=== PATIENT | male | born 1960 | race African-American/Black ===

== ENCOUNTER 2021-08-24 23:37 | Emergency (ER) | payer OTHER, SELFPAY ==
[2021-08-24 23:51] VITALS: BP 102/61; PULSE 81; RESP 18; TEMP 36.7; O2SAT 97; BMI 23.8
--- NOTE | 2021-08-24 23:52 | ED.ALLEREA ---
HPI - Allergic Reaction General Chief complaint: Allergic Reaction Stated complaint: stung by bee on face, sob, swollen Time Seen by Provider: 08/24/21 23:49 Source: patient Mode of arrival: ambulatory Limitations: no limitations History of Present Illness HPI narrative: Patient comes to the emergency room complaining of an allergic reaction to a bee sting. 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 However he noticed that they were obese coming out. Patient is unsure how many times he got stung. Patient denies any chest pain or shortness of breath, no difficulty swallowing. Patient states that the right side of his face has gradually been getting more swollen since 18:00. Patient states he took 2 tablets of Benadryl approximately 5 hours ago, no hives. Related Data Previous Rx's Medication Instructions Recorded epinephrine 0.3 mg/0.3 mL 0.3 mg (0.3 mL) IM Q4H PRN 08/24/21 injection, auto-injector (EpiPen) hypersensitivity reaction #2 ea Allergies Allergy/AdvReac Type Severity Reaction Status Date / Time bee pollen [bee stings] Allergy Intermediate Facial Verified 08/25/21 00:52 Swelling oxycodone [From OxyContin] Allergy Mild ITCHING/VOM Unverified 11/07/19 16:24 ITING acetaminophen [Vicodin] Allergy Unknown Hives Verified 08/25/21 00:52 hydrocodone [HYDROCODONE] AdvReac Severe STOMACH Unverified 11/07/19 16:24 CRAMPING Review of Systems Review of Systems: Constitutional : No Weight loss, No Fever, No Chills, No Night Sweats, No Fatigue, No Malaise ENT/Mouth : No Hearing loss, No Ear Pain, No Nasal Congestion, No Sinus Pain, No Hoarseness, No sore throat, No Rhinorrhea, No Swallowing Difficulty Eyes: No Eye Pain, No Swelling, No Redness, No Foreign Body, No Discharge, No Vision Changes Cardiovascular : No Chest Pain, No SOB, No Dyspnea on Exertion, No Orthopnea, No Edema, No Palpitations Respiratory : No Cough, No Sputum, No Wheezing, No Smoke Exposure, No Dyspnea Gastrointestinal : No Nausea, No Vomiting, No Diarrhea, No Constipation, No abdominal Pain, No Hematochezia, No Melena Genitourinary : no irregular bleeding, No Dysuria, No Urinary Frequency, No Hematuria, No Urinary Incontinence, No Urgency, No Flank Pain, No Urinary Flow Changes, No Hesitancy Musculoskeletal : No joint pain, No Myalgias, No Joint Swelling Skin : Complaining of facial swelling under the right eye Neuro : No Weakness, No Numbness, No Paresthesias, No Loss of Consciousness, No Dizziness, No Headache Psych : No Anxiety/Panic, No Depression, No SI/HI/AH/VH, No Social Issues, Heme/Lymph: No Bruising, No Bleeding,No Lymphadenopathy Endocrine : No Polyuria, No Polydipsia, No Temperature Intolerance [facility] Social History Social History Alcohol intake: current Alcohol intake frequency: holidays/special occasions only Patient Tobacco Use Status: Never used Tobacco Use of substances other than those prescribed or required for medical reasons: No Physical Exam ED Vital Signs: Vital Signs - 24 hr 08/24/21 23:51 08/24/21 23:54 08/25/21 00:00 Temperature 98.1 F 98.1 F Pulse Rate 81 81 81 Respiratory Rate 18 18 18 Blood Pressure 102/61 102/61 102/61 Pulse Oximetry 97 97 97 Oxygen Delivery Method Room Air Room Air Room Air 08/25/21 00:08 Temperature Pulse Rate 83 Respiratory Rate 15 Blood Pressure 111/65 Pulse Oximetry 97 Oxygen Delivery Method BMI result Body Mass Index 23.8 Const Other: Appearance: Alert. Oriented X3. No acute distress. Eyes: Pupils equal, round and reactive to light. ENT: Pharynx normal. No angioedema Neck: Normal inspection. Neck supple. No lymph nodes noted. No crepitus CVS: Normal heart rate and rhythm. Pulses normal. Normal S1 and S2 Respiratory: No respiratory distress. Breath sounds normal. No Wheezing. No rales Abdomen: Soft and nontender. No rigidity. No distention. Skin: Skin warm and dry. Patient has swelling to the right side of the face, from the eyebrow to below the right eye. Extremities: No lower extremity edema. No Lacerations. No Rash Neuro: Oriented X 3. No motor deficit. No sensory deficit. Moving all extremities. No slurred speech. CN 2 through 12 grossly intact Psych: calm, cooperative, normal affect Course Course Course Narrative: Patient has no shortness of breath, no wheezing, no hives, no injury edema. Patient does have moderate facial swelling under the right eye. Patient is being given IV Solu-Medrol, Pepcid and Benadryl. At this time, there is no need for epinephrine. 00:50, patient is somnolent, there is no wheezing, no angioedema, the swelling in the face subsided. EpiPen has been sent to the patient's pharmacy, instructed to have it with him at all times Discharge Plan Discharge Clinical Impression: Allergic reaction to bee sting Patient Disposition: Home, Self-Care Instructions: Insect Bite or Sting (ED), General Allergic Reaction (ED) Additional Instructions: Please follow-up with your primary care physician tomorrow. If you have any worsening or new symptoms, please return to the emergency room or call 911 Prescriptions: New epinephrine [EpiPen] 0.3 mg/0.3 mL auto-injector 0.3 mg IM Q4H PRN (Reason: hypersensitivity reaction) Qty: 2 0RF
[2021-08-24 23:54] VITALS: BP 102/61; PULSE 81; RESP 18; TEMP 36.7; O2SAT 97
[2021-08-25] VITALS: BP 102/61; PULSE 81; RESP 18; O2SAT 97
[2021-08-25] MEDS: Famotidine/PF 20 MG/2 ML VIAL IVPUSH
[2021-08-25] MEDS: diphenhydrAMINE HCL 50 MG/ML VIAL IVPUSH
[2021-08-25] MEDS: methylPREDNISolone Sod Succ 125 MG/2 ML VIAL IVPUSH
[2021-08-25 00:08] VITALS: BP 111/65; PULSE 83; RESP 15; O2SAT 97
== END 2021-08-25 01:06 | disposition home or self-care (01) ==
LOC: HO.ED 08-25 01:05
PROVIDERS: Emergency Provider Emergency Medicine; PCP Family Medicine
DX: R22.0 Localized swelling, mass and lump, head (principal); T63.441A Toxic effect of venom of bees, accidental (unintentional), initial encounter; Y92.89 Other specified places as the place of occurrence of the external cause
CPT/HCPCS: 96374; 96375; 99284; J1200; J2930

== ENCOUNTER 2022-01-11 14:06 | Emergency (ER) | payer OTHER, SELFPAY ==
--- NOTE | ~2022-01-11 | XR_ITS ---
EXAMINATION: XR KNEE, RIGHT CLINICAL INFORMATION: Pain and swelling COMPARISON: None TECHNIQUE: Four views of the right knee. FINDINGS: There is a moderate suprapatellar joint effusion and a moderate-sized prepatellar soft tissue swelling. There is decrease in patellofemoral joint space. Mild chondrocalcinosis of medial and lateral meniscus. No visible acute fracture, loose bodies, lytic or sclerotic process seen. Suspect mild periarticular spurring lateral compartment. XR/XR knee RT 3V IMPRESSION: 1. Moderate suprapatellar joint effusion and prepatellar soft tissue swelling. 2. Chondrocalcinosis medial and lateral meniscus. 3. No visible acute fracture, dislocation or subluxation seen. 4. Mild degenerative changes lateral compartment.
[2022-01-11 14:37] VITALS: BP 109/58; PULSE 98; RESP 18; TEMP 36.7; O2SAT 99; BMI 22.8
--- NOTE | 2022-01-11 14:42 | ED.FALL ---
HPI - Fall General Chief Complaint: Extremity Injury, Lower <Minesh Rhoades MD - Last Filed: 01/11/22 14:45> Stated Complaint: R knee/leg pain <Minesh Rhoades MD - Last Filed: 01/11/22 14:45> Time Seen by Provider: 01/11/22 14:54 <Minesh Rhoades MD - Last Filed: 01/11/22 14:45> Source: patient <Azalia Salter NP - Last Filed: 01/11/22 16:30> Mode of arrival: wheelchair <Azalia Salter NP - Last Filed: 01/11/22 16:30> Limitations: no limitations <Azalia Salter NP - Last Filed: 01/11/22 16:30> History of Present Illness HPI Narrative: 61-year-old male with a history of previous right knee surgery here with right knee pain and swelling after fall 3 days ago. Patient reports he had a mechanical fall landing directly on the right knee. Since then increasing pain and swelling with difficulty with weight-bearing. No redness, warmth, fevers, chills. <Azalia Salter NP - Last Filed: 01/11/22 16:30> Related Data Home Medications: Previous Rx's Medication Instructions Recorded epinephrine 0.3 mg/0.3 mL 0.3 mg (0.3 mL) IM Q4H PRN 08/24/21 injection, auto-injector (EpiPen) hypersensitivity reaction #2 ea oxycodone 5 mg tablet 5 mg PO Q6H PRN pain #10 tabs 01/11/22 <Minesh Rhoades MD - Last Filed: 01/11/22 14:45> Allergies/Adverse Reactions: Allergies Allergy/AdvReac Type Severity Reaction Status Date / Time bee pollen [bee stings] Allergy Intermediate Facial Verified 08/25/21 00:52 Swelling oxycodone [From OxyContin] Allergy Mild ITCHING/VOM Unverified 11/07/19 16:24 ITING acetaminophen [Vicodin] Allergy Unknown Hives Verified 08/25/21 00:52 hydrocodone [HYDROCODONE] AdvReac Severe STOMACH Unverified 11/07/19 16:24 CRAMPING <Minesh Rhoades MD - Last Filed: 01/11/22 14:45> Review of Systems Review of Systems: Yes all other systems are reviewed and are negative <Azalia Salter NP - Last Filed: 01/11/22 16:30> Constitutional: Constitutional: Reports no additional constitutional complaints, Denies body ache(s), Denies chills, Denies fever(s), Denies headache(s) and Denies weakness <Azalia Salter NP - Last Filed: 01/11/22 16:30> Eyes: Eyes: Reports no additional eye complaints and Denies change in vision <Azalia Salter NP - Last Filed: 01/11/22 16:30> ENT: Reports system reviewed and no additional complaints, except as documented, Denies dizziness, Denies headache(s), Denies nasal congestion, Denies nasal discharge and Denies neck pain <Azalia Salter NP - Last Filed: 01/11/22 16:30> Cardiovascular: Cardiovascular: Reports no additional cardiovascular complaints, Denies chest pain, Denies leg edema and Denies dyspnea <Azalia Salter NP - Last Filed: 01/11/22 16:30> Respiratory: Respiratory: Reports no additional respiratory complaints, Denies cough and Denies dyspnea <Azalia Salter NP - Last Filed: 01/11/22 16:30> Gastrointestinal: Gastrointestinal: Reports no additional gastrointestinal complaints, Denies abdominal pain, Denies diarrhea, Denies nausea and Denies vomiting <Azalia Salter NP - Last Filed: 01/11/22 16:30> Genitourinary: Genitourinary: Denies urinary incontinence <Azalia Salter NP - Last Filed: 01/11/22 16:30> Musculoskeletal: Musculoskeletal: Reports no additional musculoskeletal complaints, Denies back pain, Reports arthralgias, Reports joint swelling, Reports limited range of motion, Denies neck pain, Denies numbness and Denies tingling <Azalia Salter NP - Last Filed: 01/11/22 16:30> Integumentary/Breasts: Skin/Breast: Reports system reviewed and no additional complaints, except as docu and Denies rash <Azalia Salter NP - Last Filed: 01/11/22 16:30> Neurologic: Reports system reviewed and no additional complaints, except as documented, Denies Abnormal speech present, Denies dizziness, Denies headache(s), Denies numbness, Denies tingling and Denies weakness <Azalia Salter NP - Last Filed: 01/11/22 16:30> PMFSH Past Medical History Attestation statement: The following information was validated with the patient. <Azalia Salter NP - Last Filed: 01/11/22 16:30> Source: old records reviewed and nursing notes reviewed <Azalia Salter NP - Last Filed: 01/11/22 16:30> Social History Social History: Social History Alcohol intake: current Alcohol intake frequency: holidays/special occasions only Patient Tobacco Use Status: Never used Tobacco Advance Directives: No Advance Directives Information Provided: No <Minesh Rhoades MD - Last Filed: 01/11/22 14:45> Physical Exam Vital Signs: Vital Signs: Last Vital Signs Temp 98.0 F 01/11/22 14:37 Pulse 98 01/11/22 14:37 Resp 18 01/11/22 14:37 BP 109/58 L 01/11/22 14:37 Pulse Ox 99 01/11/22 14:37 O2 Del Method 01/11/22 14:37 BMI result Body Mass Index 22.8 <Minesh Rhoades MD - Last Filed: 01/11/22 14:45> Vital Signs: Last Vital Signs Temp 98.0 F 01/11/22 14:37 Pulse 98 01/11/22 14:37 Resp 18 01/11/22 14:37 BP 109/58 L 01/11/22 14:37 Pulse Ox 99 01/11/22 14:37 O2 Del Method 01/11/22 14:37 BMI result Body Mass Index 22.8 <Azalia Salter NP - Last Filed: 01/11/22 16:30> Const: General: cooperative, healthy appearing, comfortable and no acute distress <Azalia Salter NP - Last Filed: 01/11/22 16:30> Orientation/consciousness: patient oriented x3 <Azalia Salter NP - Last Filed: 01/11/22 16:30> Limitations: no limitations <Azalia Salter NP - Last Filed: 01/11/22 16:30> HEENT: Head: Yes normal to inspection <Azalia Salter NP - Last Filed: 01/11/22 16:30> Ears: hearing grossly normal bilaterally <Azalia Salter NP - Last Filed: 01/11/22 16:30> General nose exam: Normal external nose present <Azalia Salter EXAMINATION SUPERVISOR - Last Filed: 01/11/22 16:30> Face and sinus: Yes normal facial exam <Azalia Salter NP - Last Filed: 01/11/22 16:30> Mouth: Normal oral and palatal mucosa present <Azalia Salter NP - Last Filed: 01/11/22 16:30> Throat: Yes posterior oropharynx normal <Azalia Salter NP - Last Filed: 01/11/22 16:30> Eyes: General: appearance normal, both eyes and all related structures <Azalia Salter EXAMINATION SUPERVISOR - Last Filed: 01/11/22 16:30> Pupils: Equal, round and reactive pupils present <Azalia Salter NP - Last Filed: 01/11/22 16:30> Neck: Neck: Yes normal visual inspection <Azalia Salter NP - Last Filed: 01/11/22 16:30> Chest: Chest palpation & inspection: normal inspection of the chest <Azalia Salter NP - Last Filed: 01/11/22 16:30> Resp: Effort & Inspection: normal respiratory effort <Azalia Salter NP - Last Filed: 01/11/22 16:30> Auscultation: clear to auscultation bilaterally <Azalia Salter NP - Last Filed: 01/11/22 16:30> Cardio: Rate: regular rate <Azalia Salter NP - Last Filed: 01/11/22 16:30> Rhythm: regular rhythm <Azalia Salter EXAMINATION SUPERVISOR - Last Filed: 01/11/22 16:30> Peripheral pulses: Peripheral pulses 2+ throughout <Azalia Salter NP - Last Filed: 01/11/22 16:30> GI: Inspection: Yes normal to inspection <Azalia Salter NP - Last Filed: 01/11/22 16:30> Palpation (GI): Soft to palpation and nontender <Azalia Salter EXAMINATION SUPERVISOR - Last Filed: 01/11/22 16:30> Auscultation: normal bowel sounds <Azalia Salter EXAMINATION SUPERVISOR - Last Filed: 01/11/22 16:30> Back/Spine/Pelvis: Thoracic/Lumbar Spine: thoracic and lumbar spine normal to inspection <Azalia Salter NP - Last Filed: 01/11/22 16:30> Skin: General skin exam: no rashes or lesions noted <Azalia Salter NP - Last Filed: 01/11/22 16:30> Neuro: General: patient oriented x3, no focal motor deficits and normal sensation to monofilament <Azalia Salter EXAMINATION SUPERVISOR - Last Filed: 01/11/22 16:30> Cranial nerves: Yes Equal, round and reactive pupils present <Azalia Salter NP - Last Filed: 01/11/22 16:30> Cognition (Neuro): normal cognition <Azalia Salter NP - Last Filed: 01/11/22 16:30> Speech: No Abnormal speech present <Azalia Salter NP - Last Filed: 01/11/22 16:30> Gait exam (Neuro): Normal gait present <Azalia Salter EXAMINATION SUPERVISOR - Last Filed: 01/11/22 16:30> Motor exam (neuro): 5/5 motor strength present throughout <Azalia Salter NP - Last Filed: 01/11/22 16:30> Extrem: Other: Over the right anterior knee there is significant swelling and tenderness with limited flexion of the knee due to pain. Patient has a held in extension with no difficulty. Unable to obtain assess ligamental laxity due to swelling. There is no warmth or redness. There is a joint effusion. Neurovascular intact distally <Azalia Salter NP - Last Filed: 01/11/22 16:30> General: Yes normal to inspection <Azalia Salter NP - Last Filed: 01/11/22 16:30> Course Course Course Narrative: X-ray show no effusion. Likely traumatic. Discussed with patient that he should use an Dipak wrap and crutches with elevation and ice. I do not feel that the patient needs a arthrocentesis as there are no signs or symptoms concerning for septic joint. This was discussed with the patient and he agrees. Will discharge home with pain control. Reviewed worrisome signs and symptoms of when to return to the emergency room. Comfortable plan for discharge home. <Azalia Salter NP - Last Filed: 01/11/22 16:30> Reevaluation(s) Reevaluation #1: 61 yo male presents to the ED with swelling of the right knee. Patient fell on the knee 3 days ago, and has noted worsening swelling and pain in the knee. Not able to walk. No fevers or chills. XR ordered. <Minesh Rhoades MD - Last Filed: 01/11/22 14:45> Time: 14:44 <Minesh Rhoades MD - Last Filed: 01/11/22 14:45> Medications Administered Discontinued Medications Generic Name Dose Route Start Last Admin Trade Name Freq PRN Reason Stop Dose Admin Ibuprofen 800 mg 01/11/22 14:39 01/11/22 15:20 Ibuprofen 800 Mg Tablet PO 01/11/22 14:40 800 mg ONCE ONE Administration Oxycodone HCl 10 mg 01/11/22 15:12 01/11/22 15:20 Oxycodone Hcl Immed Release 5 Mg Tablet PO 01/11/22 15:13 10 mg ONCE ONE Administration <Minesh Rhoades MD - Last Filed: 01/11/22 14:45> Medications Administered Discontinued Medications Generic Name Dose Route Start Last Admin Trade Name Freq PRN Reason Stop Dose Admin Ibuprofen 800 mg 01/11/22 14:39 01/11/22 15:20 Ibuprofen 800 Mg Tablet PO 01/11/22 14:40 800 mg ONCE ONE Administration Oxycodone HCl 10 mg 01/11/22 15:12 01/11/22 15:20 Oxycodone Hcl Immed Release 5 Mg Tablet PO 01/11/22 15:13 10 mg ONCE ONE Administration <Azalia Salter NP - Last Filed: 01/11/22 16:30> Procedures Procedure Narrative Procedure Narrative: dipak wrap, crutches <Azalia Salter NP - Last Filed: 01/11/22 16:30> MDM - Fall MDM Narrative Medical decision making narrative: 61-year-old male here with right knee pain and swelling after a direct trauma on the knee with a fall. Will check x-rays, provide analgesia -low concern for septic joint with no warmth, redness, fevers, chills <Azalia Saletr NP - Last Filed: 01/11/22 16:30> Medical Records Attestation: I reviewed the patient's medical records. <Azalia Salter NP - Last Filed: 01/11/22 16:30> Lab Data Attestation: I reviewed the patient's lab results. <Azalia Salter NP - Last Filed: 01/11/22 16:30> Imaging Data knee xray: Attestation: I personally reviewed and interpreted this imaging study as follows: <Azalia Salter NP - Last Filed: 01/11/22 16:30> Radiologist's impression: FINDINGS: There is a moderate suprapatellar joint effusion and a moderate-sized prepatellar soft tissue swelling. There is decrease in patellofemoral joint space. Mild chondrocalcinosis of medial and lateral meniscus. No visible acute fracture, loose bodies, lytic or sclerotic process seen. Suspect mild periarticular spurring lateral compartment.? XR/XR knee RT 3V IMPRESSION: 1.? Moderate suprapatellar joint effusion and prepatellar soft tissue swelling. 2.? Chondrocalcinosis medial and lateral meniscus. 3.? No visible acute fracture, dislocation or subluxation seen. 4.? Mild degenerative changes lateral compartment. ? <Azalia Salter NP - Last Filed: 01/11/22 16:30> Discharge Plan Discharge Clinical Impression: Effusion of knee joint right <Minesh Rhoades MD - Last Filed: 01/11/22 14:45> Patient Disposition: Home, Self-Care <Minesh Rhoades MD - Last Filed: 01/11/22 14:45> Instructions: Swollen Knee Joint (ED) <Minesh Rhoades MD - Last Filed: 01/11/22 14:45> Additional Instructions: Use Dipak wrap and crutches for the next 2 days Elevate, apply ice, continue ibuprofen. you may take oxycodone as needed. Follow-up with orthopedics for any persistent symptoms. Return for fever, warmth or redness <Minesh Rhoades MD - Last Filed: 01/11/22 14:45> Prescriptions: New oxycodone 5 mg tablet 5 mg PO Q6H PRN (Reason: pain) Qty: 10 0RF Rx Instructions: Partial Fill upon patient request. No Action epinephrine [EpiPen] 0.3 mg/0.3 mL auto-injector 0.3 mg IM Q4H PRN (Reason: hypersensitivity reaction) Qty: 2 0RF <Minesh Rhoades MD - Last Filed: 01/11/22 14:45> Referrals: Jun Cullen MD [Primary Care Provider] - 1 week <Minesh Rhoades MD - Last Filed: 01/11/22 14:45> Interventions: ED Discharge Assessment Last Done: 01/11/22 16:17 <Minesh Rhoades MD - Last Filed: 01/11/22 14:45> Discharge Date/Time: 01/11/22 16:17 <Minesh Rhoades MD - Last Filed: 01/11/22 14:45>
[2022-01-11] MEDS: Ibuprofen 800 MG TABLET PO (15:20)
[2022-01-11] MEDS: oxyCODONE HCl Immed Release 5 MG TABLET 10 MG PO (15:20)
== END 2022-01-11 16:17 | disposition home or self-care (01) ==
PROVIDERS: Emergency Provider Emergency Medicine; PCP Family Medicine
DX: M25.461 Effusion, right knee (principal); Z79.899 Other long term (current) drug therapy
CPT/HCPCS: 73562; 99283

== ENCOUNTER 2022-03-28 02:43 | Inpatient (IN) | payer OTHER, SELFPAY ==
--- NOTE | ~2022-03-28 | XR_ITS ---
EXAMINATION: XR CHEST CLINICAL INFORMATION: Examination of bony abnormalities COMPARISON: Chest x-ray on 01/02/2015 TECHNIQUE: 2 views of the chest were obtained. FINDINGS: No significant abnormality is noted involving the heart, lungs, mediastinum, bony thorax or soft tissues. XR/XR chest 2V IMPRESSION: Unremarkable examination.
[2022-03-28 03:22] VITALS: BP 130/91; BP 140/70; PULSE 80; PULSE 94; RESP 20; TEMP 36.4; O2SAT 96; BMI 22.4
--- NOTE | 2022-03-28 03:45 | PC.NURSE ---
pt calm and cooperative. pt changed over to non ligature hospital attire. security placed pt belongings in locker 9 in pod. pt resting on stretcher at this time. 1:[address]
[2022-03-28 05:00] VITALS: BP 126/88; PULSE 87; RESP 18; TEMP 36.4; O2SAT 97
--- NOTE | 2022-03-28 06:29 | PC.NURSE ---
pt sleeping on stretcher in [facility] bed at this time.
--- NOTE | 2022-03-28 07:13 | PC.NURSE ---
assumed care of patient, pt aox3, calm and cooperative, VSS, awaiting re-eval by CARE Team
--- NOTE | 2022-03-28 07:15 | ED_ITS ---
HPI - Psych General Chief Complaint: Psychiatric Symptoms Stated Complaint: SI Time Seen by Provider: 03/28/22 03:27 History of Present Illness HPI Narrative: Patient is a 62-year-old male presents today with having suicidal thoughts. Patient did not want to say why he wanted to kill himself. He is very upset. Per nursing documentation patient has been having difficulties at. Multiple losses in the family. He has not been compliant with his medication. He has no specific plan of how to kill. Related Data Previous Rx's Medication Instructions Recorded epinephrine 0.3 mg/0.3 mL 0.3 mg (0.3 mL) IM Q4H PRN 08/24/21 injection, auto-injector (EpiPen) hypersensitivity reaction #2 ea oxycodone 5 mg tablet 5 mg PO Q6H PRN pain #10 tabs 01/11/22 Allergies Allergy/AdvReac Type Severity Reaction Status Date / Time bee pollen [bee stings] Allergy Intermediate Facial Verified 08/25/21 00:52 Swelling oxycodone [From OxyContin] Allergy Mild ITCHING/VOM Unverified 11/07/19 16:24 ITING acetaminophen [Vicodin] Allergy Unknown Hives Verified 08/25/21 00:52 hydrocodone [HYDROCODONE] AdvReac Severe STOMACH Unverified 11/07/19 16:24 CRAMPING Review of Systems Review of Systems: Patient refused to answer review of system PMFSH Past Medical History Attestation statement: The following information was validated with the patient. Social History Social History Alcohol intake: current Alcohol intake frequency: holidays/special occasions only Patient Tobacco Use Status: Never used Tobacco Smoked in Last 30 Days: No Advance Directives: No Physical Exam Vital Signs: Vital Signs: Last Vital Signs Temp 97.5 F 03/28/22 05:00 Pulse 87 03/28/22 05:00 Resp 18 03/28/22 05:00 BP 126/88 03/28/22 05:00 Pulse Ox 97 03/28/22 05:00 O2 Del Method 03/28/22 05:00 BMI result Body Mass Index 22.4 Appearance: Alert. Oriented X3. No acute distress. Eyes: Pupils equal, round and reactive to light. ENT: Pharynx normal. Neck: Normal inspection. Neck supple. No lymph nodes noted. No crepitus CVS: Normal heart rate and rhythm. Pulses normal. Normal S1 and S2 Respiratory: No respiratory distress. Breath sounds normal. No Wheezing. No rales Abdomen: Soft and nontender. No rigidity. No distention. good BS x4 Skin: Skin warm and dry. Normal skin color. Normal skin turgor. Extremities: No lower extremity edema. Neurovascular intact to all extremities. No Lacerations. No Rash Neuro: Oriented X 3. No motor deficit. No sensory deficit. Moving all extermities. No slurred speech. Cranial nerves grossly intact Medical Decision Making Medical Decision Making MDM Narrative: Positive suicidal ideation. Will get crisis evaluate patient. Currently in stable condition. Patient awaiting labs and crisis evaluation Differential Diagnosis Differential Diagnoses: The differential diagnosis associated with the presentation includes Depression, anxiety, mood disorder Consult Healthcare Provider Management of the patient was discussed with: [employer] Supervisor Crisis Lab Data [facility] Lab Attestation statement: I reviewed the patient's lab results. Discharge Plan Discharge Clinical Impression: Suicidal ideation Prescriptions: No Action oxycodone 5 mg tablet 5 mg PO Q6H PRN (Reason: pain) Qty: 10 0RF Rx Instructions: Partial Fill upon patient request. epinephrine [EpiPen] 0.3 mg/0.3 mL auto-injector 0.3 mg IM Q4H PRN (Reason: hypersensitivity reaction) Qty: 2 0RF Interventions: Jewell-Suicide Risk Severity Scale Last Done: 03/28/22 03:30
[2022-03-28 08:06] LABS: MANUAL DIFF FLAG NO
[2022-03-28 08:08] LABS: Basophils Percent Auto 0.4 % (0-2); Eosinophils Percent Auto 0.6 % (0-4); Hematocrit 42.6 % (42.0-52.0); Imm Gran Abs Auto 0.02 X10*3/uL (0.00-0.03); Imm Gran Pct Auto 0.3 % (0.0-0.4); Lymphocytes Absolute Auto 1.8 X10*3/uL (1.2-4.9); Lymphocytes Percent Auto 25.8 % (20-40); Mean Corpuscular HGB Conc 32.9 g/dl (31.0-36.0); Mean Corpuscular Hemoglobin 29.2 pg (27.0-33.0); Mean Corpuscular Volume 88.9 fL (80.0-98.0); Mean Platelet Volume 8.3 fL (9.4-12.4); Monocytes Absolute Auto 0.7 X10*3/uL (0.1-1.2); Monocytes Percent Auto 10.7 % (2-11); Neutrophils Absolute Auto 4.3 x10*3/uL (2.0-8.3); Neutrophils Percent Auto 62.2 % (45-73); Platelet Count 349 X10*3/uL (160-400); Red Blood Count 4.79 X10*6/uL (4.60-5.80); Red Cell Distribution Width 12.8 % (11.0-16.0); White Blood Count 6.9 X10*3/uL (4.8-10.8)
[2022-03-28 08:23] LABS: Anion Gap 15 (12-20); Blood Urea Nitrogen 13 mg/dL (9-16); Calcium 10.5 mg/dL (8.4-10.2); Carbon Dioxide 28 mmol/L (22-29); Chloride 103 mmol/L (96-108); Creatinine Clr Calc Pharmacy 62.4; Estimated Glomerular Filt Rate > 60; Ethanol < 10 mg/dL; Glucose Random 114 mg/dL (60-115); Sodium 141 mmol/L (135-145)
[2022-03-28 10:08] LABS: Amphetamine Screen Urine Not Detected (Not Detect); Barbiturates, Urine Not Detected (Not Detect); Benzodiazepines Screen Urine Not Detected (Not Detect); Cannabinoid Screen Urine POSITIVE (Not Detect); Cocaine Screen Urine POSITIVE (Not Detect); Fentanyl, urine POSITIVE (Not Detect); Opiate Screen Urine Not Detected (Not Detect); Phencyclidine Screen Urine Not Detected (Not Detect)
--- NOTE | 2022-03-28 13:39 | PHA.MEDREC ---
Pharmacy Consult ? Medication Reconciliation Pharmacy has completed the medication reconciliation.
--- NOTE | 2022-03-28 14:27 | MHC.CARE ---
Patient was evaluated by the CARE Team and will require an inpatient psychiatric admission. Disposition to be further discussed with patient after he is moved to the POD.
--- NOTE | 2022-03-28 15:54 | PC.NURSE ---
Pt ambulatory to and from restroom.
--- NOTE | 2022-03-28 16:46 | MHC.CARE ---
Clinical presented to reina ALMODOVAR faxed
[2022-03-28 16:49] LABS: COVID-19 Test Negative (Negative); IDNOW Serial# 16C4AD1C
--- NOTE | 2022-03-28 17:10 | PC.NURSE ---
Pts called to speak with pt however pt is sleeping. Let pt remain asleep, stated she is glad he is sleeping, he hasn't slept in like 3 days
--- NOTE | 2022-03-28 17:58 | MHC.CARE ---
CARE team sent referrals to [facility].
--- NOTE | 2022-03-29 | ECG_ITS ---
Test Reason : rule out prolonged qt Blood Pressure : / mmHG Vent. Rate : 068 BPM Atrial Rate : 068 BPM P-R Int : 148 ms QRS Dur : 074 ms QT Int : 372 ms P-R-T Axes : 079 053 025 degrees QTc Int : 395 ms Normal sinus rhythm Normal ECG When compared with ECG of 17-APR-2010 10:22, No significant change was found Referred By: Rustam Calderón Electronically Signed By:JEEVAN HAIRSTON MD
[2022-03-29 00:41] VITALS: BP 132/77; PULSE 75; RESP 16; TEMP 36.8; O2SAT 99
[2022-03-29] MEDS: Omeprazole 20 MG CAPSULE.DR PO (05:44)
[2022-03-29] MEDS: Multivitamin TABLET 1 TAB PO (08:18)
[2022-03-29] MEDS: Dextroamphetamine/Amphetamine XR 10 MG CAP.ER.24H 30 MG PO (08:18)
[2022-03-29] MEDS: Cholecalciferol (Vitamin D3) 25 MCG TABLET PO (08:19)
[2022-03-29] MEDS: allopurinoL 300 MG TABLET PO (08:19)
[2022-03-29] MEDS: Gabapentin 600 MG TABLET PO ×3 (08:19→23:00)
--- NOTE | 2022-03-29 08:56 | PC.NURSE ---
ate breakfast, in and out of room a few times, polite and calm, medicated as ordered, spent approx 30 min on the phone, nad, offers no complaints
--- NOTE | 2022-03-29 11:06 | PC.NURSE ---
patient awake, alert, making phone calls in room, requested some accommodations for his meal as he is a selective eater. arrangements were made for supplemental snacks to accompany lunch. patient appears euthymic, in no distress.
[2022-03-29 18:00] VITALS: BP 140/77; PULSE 99; RESP 18; O2SAT 99
[2022-03-29 18:35] VITALS: BMI 19.5
--- NOTE | 2022-03-29 19:37 | PC.NURSE ---
Nursing admission note: 62 year old male DX: Bipolar I mixed episode. Referred for treatment by CARE team. Signed conditional voluntary for admission. Patient presented to ED following making suicidal statements to his . States he was looking for attention , and was not actively suicidal. Patient is A+O x3. Cooperative with admission process. Presents in hospital attire, fair attn to ADL's, good eye contact. Patient engages easily, expansive, hyperverbal. Tangential, loose associations, flight of ideas, racing thoughts. States he has always been hyper . Speech is rapid and pressured. Normal volume, and tone. Patient reports he has been off medications. States he had previously been on Seroquel 800 with good effects. Reports history of LiCO3 it almost killed me, shut my kidneys down . States adverse response to Depakote also. Denies SI/HI plan or intent at this time. Denies perceptual disturbances, denies A/V hallucinations. Identifies multiple familial stressors including of a child last year, of his 2 brothers in December, who 2 days apart. States has temporary custody of her niece's children that has disrupted their lives. It was supposed to be 90 days, it's been 2 years . Reports poor sleep, sometimes I will stay up for 2-3 days . Reports appetite is fair. Patient has been more isolative, spends his days alone with no structure. Reports this is first hospitalization, has been in respite previously. Patient reports history of gout, BPH, and knee pain. Allergy to bee pollen, Oxycodone, Acetaminophen, Hydrocodone. TOX screen positive for cocaine, THC, Fentanyl. COVID negative. Patient oriented to unit, placed on unit safety checks. See nursing assessment, crisis eval for complete details.
[2022-03-29] MEDS: Tamsulosin HCL 0.4 MG CAPSULE PO (23:00)
[2022-03-29] MEDS: QUEtiapine Fumarate 300 MG TABLET 600 MG PO (23:00)
[2022-03-30 08:00] VITALS: BP 135/57; PULSE 97; RESP 16; TEMP 36.6; O2SAT 100
[2022-03-30] MEDS: Dextroamphetamine/Amphetamine XR 10 MG CAP.ER.24H 30 MG PO (09:28)
[2022-03-30] MEDS: Cholecalciferol (Vitamin D3) 25 MCG TABLET PO (09:28)
[2022-03-30] MEDS: Multivitamin TABLET 1 TAB PO (09:28)
[2022-03-30] MEDS: Omeprazole 20 MG CAPSULE.DR PO (09:28)
[2022-03-30] MEDS: Gabapentin 600 MG TABLET PO ×3 (09:28→22:21)
[2022-03-30] MEDS: allopurinoL 300 MG TABLET PO (09:28)
[2022-03-30 09:32] LABS: Alanine Aminotransferase 12 U/L (0-40); Albumin Level 3.8 g/dL (3.5-5.0); Alkaline Phosphatase 73 U/L (39-117); Anion Gap 15 (12-20); Aspartate Amino Transferase 17 U/L (5-37); Bilirubin Total 0.7 mg/dL (0.0-1.0); Blood Urea Nitrogen 13 mg/dL (9-16); Calcium 9.8 mg/dL (8.4-10.2); Carbon Dioxide 26 mmol/L (22-29); Chloride 104 mmol/L (96-108); Cholesterol 142 mg/dL; Creatinine Clr Calc Pharmacy 51.2; Estimated Glomerular Filt Rate 58; Glucose Fasting 104 mg/dL (60-99); HDL Cholesterol 47 mg/dL; LDL Cholesterol Calculated 84 mg/dl; Potassium 4.3 mmol/L (3.3-5.1); Sodium 141 mmol/L (135-145); Total Protein 6.9 g/dL (6.5-8.0); Triglycerides 56 mg/dL
--- NOTE | 2022-03-30 16:40 | PM.EVENT ---
Event Note Date of Service: 03/30/22 Event Note: Attempted to see patient for consultation at approximately 4:35pm. Patient with visitor and did not want to come out. Please re-consult hospitalistist with appropriate time for consultation Time Spent With Patient Time: Total time managing care of this patient today ____ minutes.
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
[2022-03-30 22:15] VITALS: BP 129/61; PULSE 96; RESP 18; TEMP 36.7; O2SAT 99
[2022-03-30] MEDS: QUEtiapine Fumarate 300 MG TABLET 600 MG PO (22:22)
[2022-03-30] MEDS: Tamsulosin HCL 0.4 MG CAPSULE PO (22:22)
[2022-03-31 09:04] VITALS: BP 113/72; PULSE 112; RESP 18; TEMP 36.5; O2SAT 100
[2022-03-31] MEDS: Omeprazole 20 MG CAPSULE.DR PO (09:12)
[2022-03-31] MEDS: Dextroamphetamine/Amphetamine XR 10 MG CAP.ER.24H 30 MG PO (09:12)
[2022-03-31] MEDS: allopurinoL 300 MG TABLET PO (09:13)
[2022-03-31] MEDS: Gabapentin 600 MG TABLET PO ×3 (09:13→23:00)
[2022-03-31] MEDS: Multivitamin TABLET 1 TAB PO (09:13)
[2022-03-31] MEDS: Cholecalciferol (Vitamin D3) 25 MCG TABLET PO (09:13)
[2022-03-31] MEDS: carBAMazepine ER 200 MG TAB.ER.12H PO ×2 (11:46→23:01)
--- NOTE | 2022-03-31 13:06 | HO.PSYCHPN ---
Subjective Subjective Date of Service: 03/31/22 Reason For Visit: SI Interim History: verbose, circumstantial. was initially going to discharge tomorrow, but after prolonged discussion about his relationship with his , his medications Hx, and his desire to control his mood Sx, agrees to stay longer for a trial of tegretol. states he had a negative reaction to trileptal - states it made him a zombie - aware of the similarity to tegretol yet willing to give it a go. has already failed lithium and VPA, per his report. will start at 200 BID. per staff, depressed. no SI/HI. brighter in [place]. eating, sleeping. Mental Status Exam Mental Status Exam Narrative: calm, cooperative. adequately dressed and groomed. speech incr in rate and amount, nml loudness, decr latency. thoughts digressive, circumstantial. affect full range, hyper-intense, non-labile. mood good. denies SI/SIBI/HI/AVH. Diagnostics Vital Signs (24Hr): Vital Signs - 24 hr 03/30/22 22:15 03/31/22 09:04 Temperature 98.0 F 97.7 F Pulse Rate 96 112 H Respiratory Rate 18 18 Blood Pressure 129/61 113/72 Pulse Oximetry 99 100 Oxygen Delivery Method Room Air Room Air BMI result Body Mass Index 19.5 Labs 03/28/22 08:03 03/30/22 08:58 Labs: Laboratory Results - last 48 hr 03/30/22 08:58 Sodium 141 Potassium 4.3 Chloride 104 Carbon Dioxide 26 Anion Gap 15 BUN 13 Creatinine 1.25 Estim Creat Clear Calc 51.2 Estimated GFR 58 Fasting Glucose 104 H Calcium 9.8 D Total Bilirubin 0.7 AST 17 ALT 12 Alkaline Phosphatase 73 Total Protein 6.9 Albumin 3.8 Triglycerides 56 Cholesterol 142 LDL Cholesterol, Calc 84 HDL Cholesterol 47 Imaging Radiology Impressions: ITS Impressions Chest X-Ray 03/30/22 17:50 IMPRESSION: Unremarkable examination. Medications Medications Current Medications Al Hydroxide/Mg Hydroxide (Magnesium Hydrox/Alum Hydrox 30 Ml Oral.Susp) 30 ml PO Q6H PRN PRN Reason: Heartburn/Nausea Allopurinol (Allopurinol 300 Mg Tablet) 300 mg PO DAILY [facility] Last Admin: 03/31/22 09:13 Dose: 300 mg Amphetamine/Dextroamphetamine (Dextroamphetamine/Amphetamine Xr 10 Mg Cap.Er.24h) 30 mg PO DAILY [facility] Last Admin: 03/31/22 09:12 Dose: 30 mg Calcium Carbonate (Calcium Carbonate 500 Mg Tablet) 500 mg PO DAILY [facility] Last Admin: 03/31/22 09:13 Dose: 500 mg Carbamazepine (Carbamazepine Er 200 Mg Tab.Er.12h) 200 mg PO BID [facility] Last Admin: 03/31/22 11:46 Dose: 200 mg Gabapentin (Gabapentin 600 Mg Tablet) 600 mg PO TID [facility] Last Admin: 03/31/22 09:13 Dose: 600 mg Hydroxyzine HCl (Hydroxyzine Hcl 25 Mg Tablet) 25 mg PO Q6H PRN PRN Reason: Anxiety Magnesium Hydroxide (Milk Of Magnesia 30 Ml Oral.Susp) 30 ml PO DAILY PRN PRN Reason: Constipation Multivitamins/Vitamin C (Multivitamin Tablet) 1 tab PO DAILY [facility] Last Admin: 03/31/22 09:13 Dose: 1 tab Omeprazole (Omeprazole 20 Mg Capsule.Dr) 20 mg PO DAILY@0630 [facility] Last Admin: 03/31/22 09:12 Dose: 20 mg Quetiapine Fumarate (Quetiapine Fumarate 300 Mg Tablet) 600 mg PO BEDTIME [facility] Last Admin: 03/30/22 22:22 Dose: 600 mg Tamsulosin HCl (Tamsulosin Hcl 0.4 Mg Capsule) 0.4 mg PO BEDTIME [facility] Last Admin: 03/30/22 22:22 Dose: 0.4 mg Vitamin D (Cholecalciferol (Vitamin D3) 25 Mcg Tablet) 25 mcg PO DAILY [facility] Last Admin: 03/31/22 09:13 Dose: 25 mcg Allergies Allergies Allergy/AdvReac Type Severity Reaction Status Date / Time bee pollen [bee stings] Allergy Intermediate Facial Verified 08/25/21 00:52 Swelling oxycodone [From OxyContin] Allergy Mild ITCHING/VOM Unverified 11/07/19 16:24 ITING acetaminophen [Vicodin] Allergy Unknown Hives Verified 08/25/21 00:52 hydrocodone [HYDROCODONE] AdvReac Severe STOMACH Unverified 11/07/19 16:24 CRAMPING Assessment & Plan Assessment & Plan (1) Unspecified mood [affective] disorder: Status: Acute Code(s): F39 - Unspecified mood [affective] disorder Plan 03/30: continue pt's home medical meds. restart psych meds - seroquel 600 QHS, mixed amphetamine salts 30 mg daily, gabapentin 600 TID. pursue referral for therapy and psychiatry. 03/31: very similar presentation to yesterday's. states he is feeling much better emotionally and thinking much more clearly. requests a trial of tegretol. plan for discharge on monday per pt request. Reason for contiued inpatient stay Substantial Risk for: inability to function and rapid decompensation Time Spent With Patient Time: Total time managing care of this patient today __35__ minutes.
[2022-03-31 23:00] VITALS: BP 140/67; PULSE 100; RESP 18; TEMP 36.7; O2SAT 98
[2022-03-31] MEDS: QUEtiapine Fumarate 300 MG TABLET 600 MG PO (23:00)
[2022-03-31] MEDS: Tamsulosin HCL 0.4 MG CAPSULE PO (23:01)
[2022-04-01 08:30] VITALS: BP 107/69; PULSE 100; RESP 18; TEMP 36.3; O2SAT 100
[2022-04-01] MEDS: Gabapentin 600 MG TABLET PO ×3 (08:38→22:24)
[2022-04-01] MEDS: allopurinoL 300 MG TABLET PO (08:38)
[2022-04-01] MEDS: Dextroamphetamine/Amphetamine XR 10 MG CAP.ER.24H 30 MG PO (08:39)
[2022-04-01] MEDS: carBAMazepine ER 200 MG TAB.ER.12H PO ×2 (08:40→22:24)
[2022-04-01] MEDS: Multivitamin TABLET 1 TAB PO (08:41)
[2022-04-01] MEDS: Omeprazole 20 MG CAPSULE.DR PO (08:41)
[2022-04-01] MEDS: Cholecalciferol (Vitamin D3) 25 MCG TABLET PO (08:41)
[2022-04-01] MEDS: Milk of Magnesia 30 ML ORAL.SUSP PO (11:29)
--- NOTE | 2022-04-01 12:29 | P.PNPSI_ITS ---
Subjective Subjective Date of Service: 04/01/22 Reason For Visit: SI Subjective Notes: Conditional Voluntary Interim History: Pt reports he agreed to try tegretol. He reports some frustration with and not sure if he will return there once discharged on the unit. Pt hyperverbal, difficult to redirect, at times offers information not relevant to care. Pt denies SI/HI. No VH/AH. No aggression towards self but mildly interrupting and intrusive to peers. Medication Compliance: Yes Mental Status Exam Mental Status Exam Narrative: calm, cooperative. adequately dressed and groomed. speech incr in rate and amount, nml loudness, decr latency. thoughts digressive, circumstantial. affect full range, hyper-intense, non-labile. mood good. denies SI/SIBI/HI/AVH. Diagnostics Vital Signs (24Hr): Vital Signs - 24 hr 04/01/22 22:15 Temperature 98.7 F Pulse Rate 85 Respiratory Rate 16 Blood Pressure 124/65 Pulse Oximetry 98 Oxygen Delivery Method Room Air BMI result Body Mass Index 20.0 Labs 03/28/22 08:03 03/30/22 08:58 Imaging Radiology Impressions: ITS Impressions Chest X-Ray 03/30/22 17:50 IMPRESSION: Unremarkable examination. Medications Medications Current Medications Al Hydroxide/Mg Hydroxide (Magnesium Hydrox/Alum Hydrox 30 Ml Oral.Susp) 30 ml PO Q6H PRN PRN Reason: Heartburn/Nausea Allopurinol (Allopurinol 300 Mg Tablet) 300 mg PO DAILY [facility] Last Admin: 04/01/22 08:38 Dose: 300 mg Amphetamine/Dextroamphetamine (Dextroamphetamine/Amphetamine Xr 10 Mg Cap.Er.24h) 30 mg PO DAILY [facility] Last Admin: 04/01/22 08:39 Dose: 30 mg Calcium Carbonate (Calcium Carbonate 500 Mg Tablet) 500 mg PO DAILY [facility] Last Admin: 04/01/22 08:40 Dose: 500 mg Carbamazepine (Carbamazepine Er 200 Mg Tab.Er.12h) 200 mg PO BID [facility] Last Admin: 04/01/22 22:24 Dose: 200 mg Gabapentin (Gabapentin 600 Mg Tablet) 600 mg PO TID [facility] Last Admin: 04/01/22 22:24 Dose: 600 mg Hydroxyzine HCl (Hydroxyzine Hcl 25 Mg Tablet) 25 mg PO Q6H PRN PRN Reason: Anxiety Magnesium Hydroxide (Milk Of Magnesia 30 Ml Oral.Susp) 30 ml PO DAILY PRN PRN Reason: Constipation Last Admin: 04/01/22 11:29 Dose: 30 ml Multivitamins/Vitamin C (Multivitamin Tablet) 1 tab PO DAILY [facility] Last Admin: 04/01/22 08:41 Dose: 1 tab Omeprazole (Omeprazole 20 Mg Capsule.Dr) 20 mg PO DAILY@0630 [facility] Last Admin: 04/01/22 08:41 Dose: 20 mg Quetiapine Fumarate (Quetiapine Fumarate 300 Mg Tablet) 600 mg PO BEDTIME [facility] Last Admin: 04/01/22 22:24 Dose: 600 mg Tamsulosin HCl (Tamsulosin Hcl 0.4 Mg Capsule) 0.4 mg PO BEDTIME [facility] Last Admin: 04/01/22 22:24 Dose: 0.4 mg Vitamin D (Cholecalciferol (Vitamin D3) 25 Mcg Tablet) 25 mcg PO DAILY [facility] Last Admin: 04/01/22 08:41 Dose: 25 mcg Allergies Allergies Allergy/AdvReac Type Severity Reaction Status Date / Time bee pollen [bee stings] Allergy Intermediate Facial Verified 08/25/21 00:52 Swelling oxycodone [From OxyContin] Allergy Mild ITCHING/VOM Unverified 11/07/19 16:24 ITING acetaminophen [Vicodin] Allergy Unknown Hives Verified 08/25/21 00:52 hydrocodone [HYDROCODONE] AdvReac Severe STOMACH Unverified 11/07/19 16:24 CRAMPING Assessment & Plan Assessment & Plan (1) Unspecified mood [affective] disorder: Status: Acute Code(s): F39 - Unspecified mood [affective] disorder Plan 03/30: continue pt's home medical meds. restart psych meds - seroquel 600 QHS, mixed amphetamine salts 30 mg daily, gabapentin 600 TID. pursue referral for therapy and psychiatry. 03/31: very similar presentation to yesterday's. states he is feeling much better emotionally and thinking much more clearly. requests a trial of tegretol. plan for discharge on monday per pt request. 04/01 continue tx. plan for d/c Monday. Reason for contiued inpatient stay Substantial Risk for: inability to function Time Spent With Patient Time: Total time managing care of this patient today ____ minutes.
[2022-04-01 22:15] VITALS: BP 124/65; PULSE 85; RESP 16; TEMP 37.1; O2SAT 98
[2022-04-01] MEDS: QUEtiapine Fumarate 300 MG TABLET 600 MG PO (22:24)
[2022-04-01] MEDS: Tamsulosin HCL 0.4 MG CAPSULE PO (22:24)
[2022-04-02] MEDS: Multivitamin TABLET 1 TAB PO (08:52)
[2022-04-02] MEDS: Cholecalciferol (Vitamin D3) 25 MCG TABLET PO (08:52)
[2022-04-02] MEDS: Omeprazole 20 MG CAPSULE.DR PO (08:52)
[2022-04-02] MEDS: allopurinoL 300 MG TABLET PO (08:52)
[2022-04-02] MEDS: Gabapentin 600 MG TABLET PO ×3 (08:52→22:18)
[2022-04-02] MEDS: Dextroamphetamine/Amphetamine XR 10 MG CAP.ER.24H 30 MG PO (08:52)
[2022-04-02] MEDS: carBAMazepine ER 200 MG TAB.ER.12H PO ×2 (08:52→22:17)
[2022-04-02 09:00] VITALS: BP 142/69; PULSE 88; RESP 15; TEMP 36.4; O2SAT 100
--- NOTE | 2022-04-02 13:02 | HO.PSYCHPN ---
Subjective Subjective Date of Service: 04/02/22 Reason For Visit: SI Subjective Notes: Conditional Voluntary Interim History: Pt reports mood better; feels safe on unit; eating and sleeping well; continues with constiption. Pt still hyperverbal, difficult to redirect, at times offers information not relevant to care. Pt denies SI/HI. No VH/AH. No aggression towards self but mildly interrupting and intrusive to peers. Medication Compliance: Yes Side effects from medications: No Review of Systems Acute medical concerns: No Medical Review of Systems: unchanged Mental Status Exam Mental Status Exam Narrative: calm, cooperative. adequately dressed and groomed. speech incr in rate and amount, nml loudness, decr latency. thoughts digressive, circumstantial. affect full range, hyper-intense, non-labile. mood good. denies SI/SIBI/HI/AVH. Diagnostics Vital Signs (24Hr): Vital Signs - 24 hr 04/01/22 22:15 04/02/22 09:00 Temperature 98.7 F 97.6 F Pulse Rate 85 88 Respiratory Rate 16 15 Blood Pressure 124/65 142/69 H Pulse Oximetry 98 100 Oxygen Delivery Method Room Air Room Air BMI result Body Mass Index 20.0 Labs 03/28/22 08:03 03/30/22 08:58 Imaging Radiology Impressions: ITS Impressions Chest X-Ray 03/30/22 17:50 IMPRESSION: Unremarkable examination. Medications Medications Current Medications Al Hydroxide/Mg Hydroxide (Magnesium Hydrox/Alum Hydrox 30 Ml Oral.Susp) 30 ml PO Q6H PRN PRN Reason: Heartburn/Nausea Allopurinol (Allopurinol 300 Mg Tablet) 300 mg PO DAILY [facility] Last Admin: 04/02/22 08:52 Dose: 300 mg Amphetamine/Dextroamphetamine (Dextroamphetamine/Amphetamine Xr 10 Mg Cap.Er.24h) 30 mg PO DAILY [facility] Last Admin: 04/02/22 08:52 Dose: 30 mg Calcium Carbonate (Calcium Carbonate 500 Mg Tablet) 500 mg PO DAILY [facility] Last Admin: 04/02/22 08:52 Dose: 500 mg Carbamazepine (Carbamazepine Er 200 Mg Tab.Er.12h) 200 mg PO BID [facility] Last Admin: 04/02/22 08:52 Dose: 200 mg Gabapentin (Gabapentin 600 Mg Tablet) 600 mg PO TID [facility] Last Admin: 04/02/22 08:52 Dose: 600 mg Hydroxyzine HCl (Hydroxyzine Hcl 25 Mg Tablet) 25 mg PO Q6H PRN PRN Reason: Anxiety Magnesium Hydroxide (Milk Of Magnesia 30 Ml Oral.Susp) 30 ml PO DAILY PRN PRN Reason: Constipation Last Admin: 04/01/22 11:29 Dose: 30 ml Multivitamins/Vitamin C (Multivitamin Tablet) 1 tab PO DAILY [facility] Last Admin: 04/02/22 08:52 Dose: 1 tab Omeprazole (Omeprazole 20 Mg Capsule.Dr) 20 mg PO DAILY@0630 [facility] Last Admin: 04/02/22 08:52 Dose: 20 mg Quetiapine Fumarate (Quetiapine Fumarate 300 Mg Tablet) 600 mg PO BEDTIME [facility] Last Admin: 04/01/22 22:24 Dose: 600 mg Tamsulosin HCl (Tamsulosin Hcl 0.4 Mg Capsule) 0.4 mg PO BEDTIME [facility] Last Admin: 04/01/22 22:24 Dose: 0.4 mg Vitamin D (Cholecalciferol (Vitamin D3) 25 Mcg Tablet) 25 mcg PO DAILY [facility] Last Admin: 04/02/22 08:52 Dose: 25 mcg Allergies Allergies Allergy/AdvReac Type Severity Reaction Status Date / Time bee pollen [bee stings] Allergy Intermediate Facial Verified 08/25/21 00:52 Swelling oxycodone [From OxyContin] Allergy Mild ITCHING/VOM Unverified 11/07/19 16:24 ITING acetaminophen [Vicodin] Allergy Unknown Hives Verified 08/25/21 00:52 hydrocodone [HYDROCODONE] AdvReac Severe STOMACH Unverified 11/07/19 16:24 CRAMPING Assessment & Plan Assessment & Plan (1) Unspecified mood [affective] disorder: Status: Acute Code(s): F39 - Unspecified mood [affective] disorder Plan 03/30: continue pt's home medical meds. restart psych meds - seroquel 600 QHS, mixed amphetamine salts 30 mg daily, gabapentin 600 TID. pursue referral for therapy and psychiatry. 03/31: very similar presentation to yesterday's. states he is feeling much better emotionally and thinking much more clearly. requests a trial of tegretol. plan for discharge on monday per pt request. 04/01 continue tx. plan for d/c Monday. 04/02 continue treatment plan Reason for contiued inpatient stay Substantial Risk for: inability to function and rapid decompensation Time Spent With Patient Time: Total time managing care of this patient today __25__ minutes.
[2022-04-02] MEDS: calcium polycarbophiL TABLET 1 TAB PO (16:49)
[2022-04-02 21:11] VITALS: BP 125/79; PULSE 85; RESP 16; TEMP 36.8; O2SAT 100
[2022-04-02] MEDS: QUEtiapine Fumarate 300 MG TABLET 600 MG PO (22:17)
[2022-04-02] MEDS: Tamsulosin HCL 0.4 MG CAPSULE PO (22:18)
[2022-04-03] MEDS: carBAMazepine ER 200 MG TAB.ER.12H PO ×2 (08:13→22:13)
[2022-04-03] MEDS: Multivitamin TABLET 1 TAB PO (08:13)
[2022-04-03] MEDS: allopurinoL 300 MG TABLET PO (08:13)
[2022-04-03] MEDS: Omeprazole 20 MG CAPSULE.DR PO (08:13)
[2022-04-03] MEDS: Gabapentin 600 MG TABLET PO ×3 (08:13→22:13)
[2022-04-03] MEDS: Cholecalciferol (Vitamin D3) 25 MCG TABLET PO (08:13)
[2022-04-03] MEDS: Dextroamphetamine/Amphetamine XR 10 MG CAP.ER.24H 30 MG PO (08:13)
[2022-04-03 08:45] VITALS: BP 133/70; PULSE 93; RESP 16; TEMP 36.6; O2SAT 100
--- NOTE | 2022-04-03 10:15 | P.PNPSI_ITS ---
Subjective Subjective Date of Service: 04/03/22 Reason For Visit: SI Subjective Notes: Conditional Voluntary Interim History: Pt reports mood better; feels safe on unit; eating and sleeping well; continues with constiption- started on fibercon. Pt still hyperverbal, difficult to redirect. Pt denies SI/HI. No VH/AH. No aggression towards self but mildly interrupting and intrusive to peers. Medication Compliance: No Side effects from medications: No Review of Systems Acute medical concerns: No Medical Review of Systems: unchanged Review of Systems Review of Systems constipation Mental Status Exam Mental Status Exam Narrative: calm, cooperative. adequately dressed and groomed. slight pressure to speech, nml loudness, decr latency. thoughts digressive, circumstantial. affect full range, hyper-intense, non-labile. mood good. denies SI/SIBI/HI/AVH. Diagnostics Vital Signs (24Hr): Vital Signs - 24 hr 04/02/22 21:11 04/03/22 08:45 Temperature 98.3 F 97.9 F Pulse Rate 85 93 Respiratory Rate 16 16 Blood Pressure 125/79 133/70 Pulse Oximetry 100 100 Oxygen Delivery Method Room Air Room Air BMI result Body Mass Index 20.0 Labs 03/28/22 08:03 03/30/22 08:58 Imaging Radiology Impressions: ITS Impressions Chest X-Ray 03/30/22 17:50 IMPRESSION: Unremarkable examination. Medications Medications Current Medications Al Hydroxide/Mg Hydroxide (Magnesium Hydrox/Alum Hydrox 30 Ml Oral.Susp) 30 ml PO Q6H PRN PRN Reason: Heartburn/Nausea Allopurinol (Allopurinol 300 Mg Tablet) 300 mg PO DAILY [facility] Last Admin: 04/03/22 08:13 Dose: 300 mg Amphetamine/Dextroamphetamine (Dextroamphetamine/Amphetamine Xr 10 Mg Cap.Er.24h) 30 mg PO DAILY [facility] Last Admin: 04/03/22 08:13 Dose: 30 mg Calcium Carbonate (Calcium Carbonate 500 Mg Tablet) 500 mg PO DAILY [facility] Last Admin: 04/03/22 08:13 Dose: 500 mg Carbamazepine (Carbamazepine Er 200 Mg Tab.Er.12h) 200 mg PO BID [facility] Last Admin: 04/03/22 08:13 Dose: 200 mg Gabapentin (Gabapentin 600 Mg Tablet) 600 mg PO TID [facility] Last Admin: 04/03/22 08:13 Dose: 600 mg Hydroxyzine HCl (Hydroxyzine Hcl 25 Mg Tablet) 25 mg PO Q6H PRN PRN Reason: Anxiety Magnesium Hydroxide (Milk Of Magnesia 30 Ml Oral.Susp) 30 ml PO DAILY PRN PRN Reason: Constipation Last Admin: 04/01/22 11:29 Dose: 30 ml Multivitamins/Vitamin C (Multivitamin Tablet) 1 tab PO DAILY [facility] Last Admin: 04/03/22 08:13 Dose: 1 tab Omeprazole (Omeprazole 20 Mg Capsule.Dr) 20 mg PO DAILY@0630 [facility] Last Admin: 04/03/22 08:13 Dose: 20 mg Quetiapine Fumarate (Quetiapine Fumarate 300 Mg Tablet) 600 mg PO BEDTIME [facility] Last Admin: 04/02/22 22:17 Dose: 600 mg Tamsulosin HCl (Tamsulosin Hcl 0.4 Mg Capsule) 0.4 mg PO BEDTIME [facility] Last Admin: 04/02/22 22:18 Dose: 0.4 mg Vitamin D (Cholecalciferol (Vitamin D3) 25 Mcg Tablet) 25 mcg PO DAILY [facility] Last Admin: 04/03/22 08:13 Dose: 25 mcg Allergies Allergies Allergy/AdvReac Type Severity Reaction Status Date / Time bee pollen [bee stings] Allergy Intermediate Facial Verified 08/25/21 00:52 Swelling oxycodone [From OxyContin] Allergy Mild ITCHING/VOM Unverified 11/07/19 16:24 ITING acetaminophen [Vicodin] Allergy Unknown Hives Verified 08/25/21 00:52 hydrocodone [HYDROCODONE] AdvReac Severe STOMACH Unverified 11/07/19 16:24 CRAMPING Assessment & Plan Assessment & Plan (1) Unspecified mood [affective] disorder: Status: Acute Code(s): F39 - Unspecified mood [affective] disorder Plan 03/30: continue pt's home medical meds. restart psych meds - seroquel 600 QHS, mixed amphetamine salts 30 mg daily, gabapentin 600 TID. pursue referral for therapy and psychiatry. 03/31: very similar presentation to yesterday's. states he is feeling much better emotionally and thinking much more clearly. requests a trial of tegretol. plan for discharge on monday per pt request. 04/01 continue tx. plan for d/c Monday. 04/02 continue treatment plan 04/03 continue treatment plan Reason for contiued inpatient stay Substantial Risk for: inability to function Time Spent With Patient Time: Total time managing care of this patient today ____ minutes.
--- NOTE | 2022-04-03 15:24 | MHC.RECOVRN ---
This adjusto writer operator checked in with RN, after addiction consult placed. RN states patient is stable, d/c tomorrow 04/04/22, t/w reviewed w/ RN that this adjusto writer operator could discuss harm reduction, RN agreed patient would be open to conversation. This adjusto writer operator checked in with patient, patient was calm, courteous, alert, oriented. Patient reports was upset and angry about stressors in marriage and at home and snorted some cocaine. Patient reports it was a one off thing, as patient does not use substances. Patient reports mental health needs as primary reason for hospitalization. This adjusto writer operator and patient reviewed harm reduction and drug trends, i.e adulterants in [place]. Patient verbalized understanding. Patient states is feeling stable, interested in PHP here at [facility].
[2022-04-03 22:05] VITALS: BP 118/76; PULSE 88; RESP 18; TEMP 36.6; O2SAT 98
[2022-04-03] MEDS: QUEtiapine Fumarate 300 MG TABLET 600 MG PO (22:12)
[2022-04-03] MEDS: Tamsulosin HCL 0.4 MG CAPSULE PO (22:13)
[2022-04-04 08:00] VITALS: BP 156/72; PULSE 102; TEMP 36.3; O2SAT 100
[2022-04-04] MEDS: carBAMazepine ER 200 MG TAB.ER.12H PO (08:35)
[2022-04-04] MEDS: Dextroamphetamine/Amphetamine XR 10 MG CAP.ER.24H 30 MG PO (08:35)
[2022-04-04] MEDS: Multivitamin TABLET 1 TAB PO (08:36)
[2022-04-04] MEDS: Gabapentin 600 MG TABLET PO (08:36)
[2022-04-04] MEDS: allopurinoL 300 MG TABLET PO (08:36)
[2022-04-04] MEDS: Omeprazole 20 MG CAPSULE.DR PO (08:37)
[2022-04-04] MEDS: Cholecalciferol (Vitamin D3) 25 MCG TABLET PO (08:37)
--- NOTE | 2022-04-04 09:08 | P.DS_ITS ---
DS: Providers Provider Date of Service: 04/04/22 Date of admission: 03/29/22 15:52 Primary care physician: Jun Cullen MD DS: Diagnosis Discharge Diagnosis (1) Unspecified mood [affective] disorder: Status: Acute DS: Medications Discharge Medications Home Medications: Home Medications Medication Instructions Recorded Confirmed allopurinol 300 mg tablet 1 tab PO DAILY 03/28/22 03/28/22 calcium 500 mg tablet 500 mg PO DAILY 03/28/22 03/28/22 cholecalciferol (vitamin D3) 25 25 mcg PO DAILY 03/28/22 03/28/22 mcg (1,000 unit) tablet (Vitamin D3) multivitamin 1 tab PO DAILY 03/28/22 03/28/22 omeprazole 20 mg capsule,delayed 1 cap PO DAILY 03/28/22 03/28/22 release tamsulosin 0.4 mg capsule 1 cap PO BEDTIME 03/28/22 03/28/22 Previous Rx's Medication Instructions Recorded carbamazepine 200 mg 200 mg PO BID #60 tabs 04/04/22 tablet,extended release,12 hr gabapentin 600 mg tablet 600 mg PO TID #90 tabs 04/04/22 quetiapine 300 mg tablet 600 mg PO BEDTIME #120 tabs 04/04/22 Mental Status Exam Mental Status Exam Narrative: calm, cooperative. adequately dressed and groomed. speech incr in rate and amount, nml loudness, decr latency. thoughts digressive, circumstantial. affect full range, hyper-intense, non-labile. mood good. denies S I/SIBI/HI/AVH. Data Data Completed and Pending Completed studies during hospitalization [Text1]: 03/28/22 03/28/22 03/30/22 09:46 16:20 08:58 Sodium 141 Potassium 4.3 Chloride 104 Carbon Dioxide 26 Anion Gap 15 BUN 13 Creatinine 1.25 Estim Creat Clear Calc 51.2 Estimated GFR 58 Fasting Glucose 104 H Calcium 9.8 D Total Bilirubin 0.7 AST 17 ALT 12 Alkaline Phosphatase 73 Total Protein 6.9 Albumin 3.8 Triglycerides 56 Cholesterol 142 LDL Cholesterol, Calc 84 HDL Cholesterol 47 Urine Opiates Screen Not Detected Urine Fentanyl Screen POSITIVE H Ur Barbiturates Screen Not Detected Ur Phencyclidine Scrn Not Detected Ur Amphetamines Screen Not Detected U Benzodiazepines Scrn Not Detected Urine Cocaine Screen POSITIVE H U Marijuana (THC) Screen POSITIVE H COVID-19 (JOSE) Negative COVID-19 Clin Com See Note Imaging Diagnostic Imaging Impressions Chest X-Ray 03/30/22 17:50 IMPRESSION: Unremarkable examination. DS: Summary Hospital Course Hospital Course: HPI: pt was BIBA and police with CC of suicidal thoughts.? he reported stressors including the prolonged sojourn at his home of three young nieces who were to be temporarily staying with his family, stress on his marriage, lapse in medication, and substance use.? he informed CARE team staff that he had not had SI but had rather told his that in a bid for her attention.? he c/o poor sleep and appetite.? per collateral from pt's , when he was stable in the past, taking medication, he was employed, productive, easy to get along with, generous.? now he appears irritable and angry, isolates, and does not engage in activities with his family.? she stated he has been changed the past 6-7 months, and she speculates relapse to cocaine use has played a substantial role in his progression. ? they had an argument this weekend in which she expressed the feeling she could no longer cope with pt's behaviors, and he left and called later to say goodbye to her, indicating he planned to kill himself.? he then turned off his phone and returned to the house sometime later, where his prevailed upon him to come to the hospital.? he has had a therapist until recently when his therapy discontinued meeting with him due to too many no- shows.? he reported he had been getting medications from his PCP, but he had lapsed for some time.? on interview with he is hyperverbal but interruptible.? he is somewhat irritable, and his narrative is consistent with that taken by CARE team staff.? he does deny any safety concerns and acknowledges he feels better when he is taking medications.? glad to be back on them. HOSPITAL COURSE On the unit, pt admitted on a CV and placed on 15 minutes checks for safety. pt presented as hyperverbal, expansive and mildly irritable mood. Limited insight into effects of cocaine on his underlying Bipolar Disorder. No signs of VH/AH. Probably stimulant only worsening mood. After discussing risks, benefits and alternative treatment options, pt agreed to start cabamazepine, as he reported fair effect with trileptal. He tolerated the medication well. His affect gradually presented as less expansive, less hyperverbal, thought process still a bit circumstantial. No SI/HI. No signs of aggression towards self or others. Time Spent with Patient Time attestation: Total time managing care of this patient today ____ minutes. Discharge Plan Discharge Anticipated Discharge Date/Time: 04/04/22 09:02 Patient Disposition: Home, Self-Care Discharge Diagnosis: Mood Disorder, r/o Bipolar disorder Referrals: Therapy & Psychiatry [Other] - 1 Week (Please contact central intake at the number listed above once you are discharged. Central intake staff will set you up with a same day intake appointment. During that appointment, the intake staff will be able to obtain a therapy and psychiatry appointment for you) Jun Cullen MD [Primary Care Provider] - 1 Week (they will be calling pt. by Monday the soonest.) Discharge Medications: New gabapentin 600 mg Tablet 600 mg PO TID Qty: 90 0RF quetiapine 300 mg Tablet 600 mg PO BEDTIME Qty: 120 0RF carbamazepine 200 mg Tablet Extended Release 12 Hr 200 mg PO BID Qty: 60 0RF Continued multivitamin Tablet 1 tab PO DAILY calcium 500 mg Tablet 500 mg PO DAILY tamsulosin 0.4 mg capsule 1 cap PO BEDTIME omeprazole 20 mg capsule,delayed release(DR/EC) 1 cap PO DAILY allopurinol 300 mg tablet 1 tab PO DAILY cholecalciferol (vitamin D3) [Vitamin D3] 25 mcg (1,000 unit) Tablet 25 mcg PO DAILY Discontinued gabapentin 600 mg tablet 1 tab PO TID quetiapine 300 mg tablet 2 tab PO BEDTIME dextroamphetamine-amphetamine 30 mg capsule,extended release 24hr 1 cap PO QAM Discharge Orders: Discharge Order (Routine); Ordered 04/04/22 Ordered By: Marisol Ramsey Diet: Regular diet Activity on Discharge: As tolerated Stand Alone Forms: Patient Portal Discharge page, Community Support Care Plan Goals: 1. Maintain mood 2. No SI/HI No psychosis or delusions No aggression towards self or others Health Concerns: Follow up with PCP Plan of Treatment: 1. Take medications as prescribed 2. Go to nearest ED or call 911 in event of emergency. Assessment: Pt with bright affect, slightly expansive and hyperverbal. No overt psychosis or delusions. No SI/HI. Future oriented, looking forward to continue work and OP psych tx. Limited insight into cocaine use and its effects on mood and stability. Discharge Date/Time: 04/04/22 11:44
--- NOTE | 2022-04-04 11:08 | PC.NURSE ---
Patient alert, oriented x3. Reports he feels safe to be discharged, his partner will come to unit to transport home. Patient denies SI/HI, denies AH/VH. Reported that he had expressed SI to get attention, now feels ready to go home, feels medications are helpful. Patient future oriented, hyperverbal, easily redirected. Reviewed discharge instructions, belongings- patient verbalized understanding and reported all belongings accounted for.
== END 2022-04-04 11:44 | disposition home or self-care (01) | DRG 885 ==
LOC: HO.ED 14:41 → HO.PADLT16 03-29 16:37
PROVIDERS: Admitting Provider Social Worker; Emergency Provider Emergency Medicine Emergency Medical Services; PCP Family Medicine; Visit Provider Psychiatry & Neurology Psychiatry
DX: F39 Unspecified mood [affective] disorder (principal); R45.851 Suicidal ideations; F17.210 Nicotine dependence, cigarettes, uncomplicated; Z20.822 Contact with and (suspected) exposure to COVID-19; Z23 Encounter for immunization; Z71.6 Tobacco abuse counseling; Z88.5 Allergy status to narcotic agent; Z88.6 Allergy status to analgesic agent; Z79.899 Other long term (current) drug therapy
CPT/HCPCS: 36415; 71046; 80048; 80053; 80061; 80307; 82077; 85025; 87635; 90686; 93005; 99285; S9485

== ENCOUNTER 2022-05-19 12:09 | Outpatient (REF) | payer OTHER, MEDICAID, SELFPAY | END 2022-05-19 12:10 | disposition home or self-care (01) | LOC: HO.HOSX 12:09 | PROVIDERS: Visit Provider Orthopaedic Surgery | DX: Z13.89 Encounter for screening for other disorder (principal) ==

== ENCOUNTER 2024-04-15 10:35 | Observation (INO) | payer OTHER, SELFPAY ==
[2024-04-15] VITALS (8 sets, daily range): BP systolic 115–134; BP diastolic 55–76; PULSE 61–72; RESP 12–18; TEMP 36.5–36.8; O2SAT 98–100; BMI 45.5
--- NOTE | 2024-04-15 | ECG_ITS ---
Test Reason : syncope Blood Pressure : */* mmHG Vent. Rate : 72 BPM Atrial Rate : 72 BPM P-R Int : 182 ms QRS Dur : 80 ms QT Int : 382 ms P-R-T Axes : 72 33 36 degrees QTcB Int : 418 ms Normal sinus rhythm Normal ECG When compared with ECG of 29-Mar-2022 11:41, No significant change was found Referred By: Generic ED Physician Electronically Signed By: LYNN CHAVEZ
--- NOTE | ~2024-04-15 | XR_ITS ---
EXAMINATION: XR CHEST CLINICAL INFORMATION: sob COMPARISON: March 2022 TECHNIQUE: Frontal view of the chest was obtained. FINDINGS: No consolidation, pleural effusion or pneumothorax. Cardiomediastinal silhouette size is normal. Multilevel thoracic and upper lumbar spondylosis. XR/XR chest 1V IMPRESSION: No acute airspace disease. Electronically signed by: Ganesh Domínguez MD 04/15/2024 12:29 PM EST
--- NOTE | ~2024-04-15 | XR_ITS ---
CLINICAL HISTORY: fall 2 view, pelvis and right hip Comparison: None Findings: The bones are intact. Moderate DJD with joint space narrowing and osteophytosis. The soft tissues are unremarkable. IMPRESSION: No acute findings. Moderate DJD. This document has been electronically signed by: Siri Salcedo MD on 04/16/2024 20:41:03
--- NOTE | ~2024-04-15 | CT_ITS ---
EXAMINATION: CT CERVICAL SPINE WITHOUT CONTRAST CLINICAL INFORMATION: Trauma, neck pain. COMPARISON: None available. TECHNIQUE: Spiral CT imaging of the cervical spine performed in axial plane without contrast. Multiplanar reformatted images were constructed from the axial data set. This CT examination was performed using dose optimization techniques as appropriate, variously including the following: *Automated exposure control *Adjustment of mA and/or kV according to patient size (this includes techniques or standardized protocols for targeted exams where dose is matched to indication/reason for exam; i.e. extremities or head) *Use of iterative reconstruction technique FINDINGS: CORONAL ALIGNMENT: -Normal. SAGITTAL ALIGNMENT: -Normal lordosis. 2 mm degenerative retrolisthesis of C5 on C6, and C6 on C7. C1-C2 AND CRANIOCERVICAL JUNCTION: -Intact, and aligned, with moderate degenerative arthritis at the atlantoaxial joint. VERTEBRAL BODIES AND FACETS: -There is no fracture, compression deformity, or suspicious bone lesion, or traumatic subluxation. -A fat attenuation subcentimeter lesion in C5 is consistent with a hemangioma. -There is normal facet alignment with mild multilevel degenerative facet changes. -There is ossification of the posterior longitudinal ligament throughout local region, mildly narrowing the central canal. DISCS: -There is moderate disc space narrowing noted at C5-6 and C6-7. There is otherwise mild disc space loss. -There are somewhat bulky appearing ventral disc and vertebral osteophytes spanning C3-C7, findings suspicious for DISH. PREVERTEBRAL AND PARAVERTEBRAL SOFT TISSUES: -Normal. Normal thyroid. LUNG APICES: -Scarring in the right greater than left lung apices, with mild right paraseptal emphysema. OTHER: -Cerumen impaction noted in the right EAC. CT/CT cervical spine wo IV con IMPRESSION: 1. No CT evidence of acute cervical spine fracture or injury. 2. Degenerative spondylosis, mild to moderate in severity. Findings suggestive of DISH. 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 No high-grade central canal narrowing. 3. Additional ancillary findings as discussed. Electronically signed by: Timmy Oleary MD 04/15/2024 02:35 PM [facility]
--- NOTE | ~2024-04-15 | CT_ITS ---
EXAMINATION: CT HEAD WITHOUT CONTRAST CLINICAL INFORMATION: Head trauma. COMPARISON: None available. TECHNIQUE: Contiguous axial imaging was performed from the skull base to vertex without intravenous administration of contrast. This CT examination was performed using dose optimization techniques as appropriate, variously including the following: *Automated exposure control *Adjustment of mA and/or kV according to patient size (this includes techniques or standardized protocols for targeted exams where dose is matched to indication/reason for exam; i.e. extremities or head) *Use of iterative reconstruction technique FINDINGS: There is no evidence of intracranial hemorrhage or extra-axial fluid collection. There is no mass effect, or edema. No CT evidence of acute territorial infarct. Ventricles, sulci, and cisterns are normal in size and configuration for patient age. No hydrocephalus. No midline shift. Negative hyperdense MCA sign. Negative insular ribbon sign. No significant white matter abnormalities. Normal pituitary. Globes and orbital contents image normally. No extracranial soft tissue abnormalities. The paranasal sinuses, mastoid air cells, and tympanic cavities are normally aerated. No suspicious bony abnormalities. There are no acute fractures evident. CT/CT head/brain wo IV con IMPRESSION: No acute intracranial abnormality. No fracture seen. Electronically signed by: Timmy Oleary MD 04/15/2024 02:29 PM [facility]
[2024-04-15 11:20] LABS: MANUAL DIFF FLAG NO
[2024-04-15 11:23] LABS: Basophils Percent Auto 0.4 % (0-2); Eosinophils Absolute Auto 0.1 X10*3/uL (0.0-0.4); Eosinophils Percent Auto 1.2 % (0-4); Hematocrit 37.5 % (42.0-52.0); Hemoglobin 12.5 g/dl (14.0-18.0); Imm Gran Abs Auto 0.01 X10*3/uL (0.00-0.03); Imm Gran Pct Auto 0.2 % (0.0-0.4); Lymphocytes Absolute Auto 1.5 X10*3/uL (1.2-4.9); Lymphocytes Percent Auto 29.9 % (20-40); Mean Corpuscular HGB Conc 33.3 g/dl (31.0-36.0); Mean Corpuscular Hemoglobin 30.6 pg (27.0-33.0); Mean Corpuscular Volume 91.7 fL (80.0-98.0); Mean Platelet Volume 8.7 fL (9.4-12.4); Monocytes Absolute Auto 0.5 X10*3/uL (0.1-1.2); Monocytes Percent Auto 10.2 % (2-11); Neutrophils Absolute Auto 2.9 x10*3/uL (2.0-8.3); Neutrophils Percent Auto 58.1 % (45-73); Platelet Count 332 X10*3/uL (160-400); Red Blood Count 4.09 X10*6/uL (4.60-5.80); Red Cell Distribution Width 12.7 % (11.0-16.0)
--- NOTE | 2024-04-15 11:25 | PC.NURSE ---
sepideh from home - pt was outside taking out the trash when he started c/o sudden onset palpitations/sob/increased weakness/dizziness/confusion w/ exertion. mother in law reports possible fall. pt does not recall event but noticed that his tooth is missing. ?headstrike, ?loc, -thinners. negative FAST via EMS. denies hx of seizures. reports hx of stroke. upon ED arrival - a&ox4. vss and up to date. neuros intact. face symmetrical. no slur in speech noted. strength equal bilaterally. no pronator drift noted. pt currently denies any sob/dizziness at rest. 20gIV in the right AC via EMS - patent/intact. labs/ekg obtained by tech. chest xray completed. pt currently on RA w/o difficulty. no sob/wob noted. respirations even/unlabored. plan of care ongoing. call kim placed within reach.
--- NOTE | 2024-04-15 11:28 | ED_ITS ---
HPI - General Adult General Chief complaint: General Medical Stated complaint: DIZZY,SOB PER EMS Time Seen by Provider: 04/15/24 11:28 Source: patient Limitations: no limitations History of Present Illness HPI narrative: This is 64 years old male brought in by ambulance after a syncopal episode. He states that he went out to bring the trash he came back he fell lightheaded/dizzy he feeling palpitation and he end up in the floor one of tooth was fx Onset (ago): hour(s) (2) Location: face Radiation: non-radiation Severity: mild Pain Consistency: constant Relieving factors: none Exacerbating factors: none Related Data Home Medications ?Medication ?Instructions ?Recorded ?Confirmed allopurinol 300 mg tablet 1 tab PO DAILY 03/28/22 04/15/24 cholecalciferol (vitamin D3) 25 25 mcg PO DAILY 03/28/22 04/15/24 mcg (1,000 unit) tablet (Vitamin D3) multivitamin 1 tab PO DAILY 03/28/22 04/15/24 omeprazole 20 mg capsule,delayed 1 cap PO DAILY@0630 03/28/22 04/15/24 release tamsulosin 0.4 mg capsule 1 cap PO BEDTIME 03/28/22 04/15/24 calcium carbonate 500 mg PO DAILY 04/15/24 04/15/24 dextroamphetamine-amphetamine ER 1 cap PO DAILY 04/15/24 04/15/24 30 mg 24hr capsule,extend release quetiapine 300 mg tablet 600 mg PO BEDTIME PRN Mood/Sleep 04/15/24 04/15/24 Previous Rx's ?Medication ?Instructions ?Recorded carbamazepine 200 mg 200 mg PO BID #60 tabs 04/04/22 tablet,extended release,12 hr gabapentin 600 mg tablet 600 mg PO TID #90 tabs 04/04/22 Allergies Allergy/AdvReac Type Severity Reaction Status Date / Time bee pollen [bee stings] Allergy Intermediate Facial Verified 04/15/24 10:41 Swelling oxycodone [From OxyContin] Allergy Mild ITCHING/VOM Verified 04/15/24 10:41 ITING acetaminophen [Vicodin] Allergy Unknown Hives Verified 04/15/24 10:41 hydrocodone [HYDROCODONE] AdvReac Severe STOMACH Verified 04/15/24 10:41 CRAMPING Review of Systems 2 Constitutional: Constitutional: Reports no additional constitutional complaints Cardiovascular: Cardiovascular: Reports no additional cardiovascular complaints Gastrointestinal: Gastrointestinal: Reports no additional gastrointestinal complaints Neurologic: Reports system reviewed and no additional complaints, except as documented [facility] Past Medical History [facility] Narrative: History of bipolar disorder, history of attention deficit disorder, history of gout Medical History (Updated 04/15/24 @ 17:06 by Chelsey García NP) Unspecified mood [affective] disorder Social History Social History Household Members: Family Household Members Other:: , 2 boys, mother in law, 3 children (temporary custody). Housing: House Do you presently have visiting nurse or other home services: No Alcohol intake: current Alcohol intake frequency: holidays/special occasions only Patient Tobacco Use Status: Never used Tobacco Smoked in Last 30 Days: No e-Cigarette/Vaping Use: Currently Using Second Hand Smoke Exposure: No Use of substances other than those prescribed or required for medical reasons: Yes Substance Use Type: Marijuana Advance Directives: No Advance Directives Information Provided: Yes Do you have a plan to hurt others: No Plan Nutrition Risks: No Nutritional Risk service: No Sexual orientation: Straight/Heterosexual Physical Exam ED Vital Signs: Vital Signs - 24 hr 04/15/24 10:40 04/15/24 12:48 04/15/24 16:35 Temperature 97.7 F 98.3 F Pulse Rate 69 72 72 Respiratory Rate 18 18 14 Blood Pressure 119/56 L 118/70 116/55 L Pulse Oximetry 99 99 98 Oxygen Delivery Method Room Air Room Air Room Air BMI result Body Mass Index 45.5 Not acute distress Const General: cooperative and comfortable Orientation/consciousness: patient oriented x3 Limitations: no limitations HENAZ Head: Yes normal to inspection General nose exam: Normal external nose present Throat: Yes posterior oropharynx normal Neck Neck: Yes normal visual inspection Chest Chest palpation & inspection: normal inspection of the chest Resp Effort & Inspection: normal respiratory effort Auscultation: clear to auscultation bilaterally Cardio Jugular venous distension: no JVD Rate: regular rate Rhythm: regular rhythm GI Inspection: Yes normal to inspection Palpation (GI): Soft to palpation, not firm, nontender and no guarding Percussion: Yes normal to percussion Auscultation: normal bowel sounds Skin General skin exam: no rashes or lesions noted and elasticity normal Neuro General: patient oriented x3 Cranial nerves: Yes CN's II-XII intact bilaterally Motor exam (neuro): 5/5 motor strength present throughout Coordination: [id number] test normal Medications Administered Generic Name Dose Route Start Last Admin Trade Name Fregricel PRN Reason Stop Dose Admin Acetaminophen 650 mg 04/15/24 16:50 04/15/24 20:59 Acetaminophen 325 Mg Tablet PO 650 mg Q6H PRN Administration Pain, Mild 1-3,fever,headache Enoxaparin Sodium 40 mg 04/15/24 17:00 04/15/24 17:06 Enoxaparin Sodium 40 Mg/0.4 Ml Syringe SUBCUT 40 mg Q24H KIAH Administration Lactated Ringer's 1,000 mls @ 80 mls/hr 04/15/24 17:00 04/16/24 05:42 Lr IVCONT 80 mls/hr .[id number] KIAH Administration Omeprazole 20 mg 04/16/24 06:30 04/16/24 06:52 Omeprazole 20 Mg Capsule.Dr PO 20 mg DAILY@0630 KIAH Administration Sodium Chloride 3 ml 04/16/24 00:00 04/15/24 23:24 0.9 % Sodium Chloride Flush 3 Ml Syringe IVFLUSH Not Given QSHIFT KIAH Discontinued Medications Generic Name Dose Route Start Last Admin Trade Name Fregricel PRN Reason Stop Dose Admin Carbamazepine 200 mg 04/16/24 01:01 04/16/24 01:22 Carbamazepine Er 200 Mg Tab.Er.12h PO 04/16/24 01:02 200 mg ONCE ONE Administration Gabapentin 600 mg 04/16/24 01:01 04/16/24 01:22 Gabapentin 600 Mg Tablet PO 04/16/24 01:02 600 mg ONCE ONE Administration Sodium Chloride 1,000 mls @ 999 mls/hr 04/15/24 11:45 04/15/24 13:48 Ns IVCONT 04/15/24 12:45 Infused .Q1H1M KIAH Infusion Medical Decision Making Medical Decision Making [facility] Narrative: Patient presented to the emergency department with a chief complaint of syncopal episode will check labs EKG Differential Diagnosis Differential Diagnoses: The differential diagnosis associated with the presentation includes Cardiac arrhythmia/dehydration/vasovagal episode Lab Data [facility] Lab Attestation statement: I reviewed the patient's lab results. 04/15/24 11:04 04/15/24 11:04 Labs: Lab Results 04/15/24 04/15/24 04/15/24 Range/Units 11:03 11:04 16:31 WBC 5.0 (4.8-10.8) X10*3/uL RBC 4.09 L (4.60-5.80) X10*6/uL Hgb 12.5 L (14.0-18.0) g/dl Hct 37.5 L (42.0-52.0) % MCV 91.7 (80.0-98.0) fL MCH 30.6 (27.0-33.0) pg MCHC 33.3 (31.0-36.0) g/dl RDW 12.7 (11.0-16.0) % Plt Count 332 (160-400) X10*3/uL MPV 8.7 L (9.4-12.4) fL Immature Gran % (Auto) 0.2 (0.0-0.4) % Neut % (Auto) 58.1 (45-73) % Lymph % (Auto) 29.9 (20-40) % [place]ffie % (Auto) 10.2 (2-11) % Eos % (Auto) 1.2 (0-4) % Baso % (Auto) 0.4 (0-2) % Lymph # (Auto) 1.5 (1.2-4.9) X10*3/uL [place]ffie # (Auto) 0.5 (0.1-1.2) X10*3/uL Eos # (Auto) 0.1 (0.0-0.4) X10*3/uL Baso # (Auto) 0.0 (0.0-0.2) X10*3/uL Abs Immat Gran (auto) 0.01 (0.00-0.03) X10*3/uL Absolute Neuts (auto) 2.9 (2.0-8.3) x10*3/uL Absolute Nucleated RBC 0.000 (0.0-0.012) X10*3/uL Nucleated RBC % (auto) 0.0 (0.0-0.2) /100WBC Hold Blue Top SEE NOTE Sodium 139 (135-145) mmol/L Potassium 4.0 (3.3-5.1) mmol/L Chloride 105 (96-108) mmol/L Carbon Dioxide 29 (22-29) mmol/L Anion Gap 9 L (12-20) BUN 10 (9-16) mg/dL Creatinine 0.89 (0.5-1.4) mg/dL Estim Creat Clear Calc 111.5 Estimated GFR > 60 POC Glucose 89 (60-115) mg/dL Random Glucose 58 L* (60-115) mg/dL Calcium 8.9 D (8.4-10.2) mg/dL Magnesium 2.1 (1.6-2.6) mg/dL Total Bilirubin 0.3 (0.0-1.0) mg/dL Direct Bilirubin 0.1 (0.0-0.5) mg/dL AST 19 (5-37) U/L ALT 12 (0-40) U/L Alkaline Phosphatase 90 (39-117) U/L Troponin I High Sens < 2.7 (<3.5-35.0) ng/L B-Natriuretic Peptide 28 (<100) pg/mL Total Protein 6.8 (6.5-8.0) g/dL Albumin 3.7 (3.5-5.0) g/dL Influenza Type A (PCR) NEGATIVE (Negative) Influenza Type B (PCR) NEGATIVE (Negative) RSV RNA Qual (PCR) NEGATIVE (Negative) SARS-CoV-2 RNA (RT-PCR) NEGATIVE (Negative) Independent Interpretation I performed an independent interpretation of an: EKG Interpretation: EKG was reviewed interpreted by me as normal sinus rhythm rate [address]-T changes QT interval 382 Discharge Plan Discharge Clinical Impression: Syncope Qualifiers: Syncope type: unspecified Qualified Code(s): R55 - Syncope and collapse Patient Disposition: Admitted As Inpatient
[2024-04-15 11:50] LABS: Alanine Aminotransferase 12 U/L (0-40); Albumin Level 3.7 g/dL (3.5-5.0); Alkaline Phosphatase 90 U/L (39-117); Anion Gap 9 (12-20); Aspartate Amino Transferase 19 U/L (5-37); Bilirubin Direct 0.1 mg/dL (0.0-0.5); Bilirubin Total 0.3 mg/dL (0.0-1.0); Blood Urea Nitrogen 10 mg/dL (9-16); Calcium 8.9 mg/dL (8.4-10.2); Carbon Dioxide 29 mmol/L (22-29); Chloride 105 mmol/L (96-108); Creatinine Clr Calc Pharmacy 111.5; Estimated Glomerular Filt Rate > 60; Glucose Random 58 mg/dL (60-115); Magnesium 2.1 mg/dL (1.6-2.6); Sodium 139 mmol/L (135-145); Total Protein 6.8 g/dL (6.5-8.0)
[2024-04-15 11:55] LABS: B Type Natriuretic Peptide 28 pg/mL (<100)
[2024-04-15 11:56] LABS: Troponin-I High Sensitivity < 2.7 ng/L (<3.5-35.0)
[2024-04-15 12:21] LABS: Influenza A PCR NEGATIVE (Negative); Influenza B PCR NEGATIVE (Negative); Resp Syncy Virus RNA Qual PCR NEGATIVE (Negative); SARS COV2 PCR INHOUSE NEGATIVE (Negative)
--- OUTSIDE RECORDS SUMMARY | 2024-04-15 12:21 | XMS_ITS ---
Author Name [facility] Organization Unknown Problems Problem Status Onset Date Problem Type Date of Resoluti on Source Laceration of right forearm, initial encounter active EncounterDiagnosisAct [id number] H
--- OUTSIDE RECORDS SUMMARY | 2024-04-15 12:21 | XMS_ITS | Clinical Summary ---
Author Organization [facility] Address [address] [place] [id number] Care Team Providers Care Radar Systems Engineer Name Role Phone Jun Cullen MD Primary Care Provider + Allergies Active Allergy Reactions Criticality Noted Date Comments Oxycodone Itching 11/01/2023 vomiting Hydrocodone-Acetaminophen Itching 11/01/2023 vomtiing Social History Tobacco Use Types Packs/Day Years Used Date Smoking Tobacco: Never Assessed Sex and Gender Information Value Date Recorded Sex Assigned at Not on file Legal Sex Male 12:23 PM EDT Gender Identity Not on file Sexual Orientation Not on file Last Filed Vital Signs Vital Sign Reading Time Taken Comments Blood Pressure 125/72 11/01/2023 3:10 PM EDT Pulse - - Temperature 36.7 ??C (98.1 ??F) 11/01/2023 12:29 PM E DT Respiratory Rate 20 11/01/2023 3:10 PM EDT Oxygen Saturation 98% 11/01/2023 3:10 PM EDT Inhaled Oxygen Concentration - - Weight 67.8 kg (149 lb 7.6 oz) 11/01/2023 12:29 PM EDT Height 175.3 cm (5' 9 ) 11/01/2023 12:29 PM EDT Body Mass Index 22.07 11/01/2023 12:29 PM EDT Plan of Treatment Health Maintenance Due Date Last Done Comments CT Colonography 1960 Colonoscopy 1960 Colorectal Cancer Screening 1960 FIT-DNA 1960 FIT 1960 FOBT 1960 Hepatitis C Screening 1960 Lipid Panel 1960 Sigmoidoscopy 1960 Medicare Annual Wellness Visit 1977 Pneumococcal Vaccine: 50+ Years (1 of 1 - PCV) 2009 Zoster Vaccines (1 of 2) 2009 COVID-19 Vaccine (3 - season) 2023 09/30/2020, 09/09/2020 Influenza Vaccine (#1) 2023 , 03/29/2022, 12/15/2020, Additional history exists Abdominal Aortic Aneurysm (AAA) Screen 02/15/2024 Fall Risk Screening 02/15/2024 Tdap and Td Vaccines Adult 02/03/2026 02/04/2016, RSV 60+ (1 - 1-dose 75+ series) 2034 HIB Vaccines Aged Out No longer eligi ble based on patient's age to complete this topic HPV Vaccines Aged Out No longer eligi ble based on patient's age to complete this topic Hepatitis A Vaccines Aged Out No long er eligible based on patient's age to complete this topic IPV Vaccines Aged Out No longer eligi ble based on patient's age to complete this topic Meningococcal Vaccine Aged Out No marc alfredo eligible based on patient's age to complete this topic Pneumococcal Vaccine: Peds (0 to 5 Yrs) and At-Risk Pts (6 to 49 Yrs) Aged Out No longer eligible based on patient's age to complete this topic RSV <20 Months Aged Out No longer merrick gible based on patient's age to complete this topic Insurance MANAGED MEDICARE GENERIC REYNA CASTELLANOS [id number] Care Teams Radar Systems Engineer Relationship Specialty Start Date End Date Jun Cullen MD [address] [place] [id number] PCP - General Family Medicine 11/01/23
--- OUTSIDE RECORDS SUMMARY | 2024-04-15 12:21 | XMS_ITS | Clinical Summary ---
Author Organization [facility] Address [address] [place] [address] Care Team Providers Care Manager Of Case Management Name Role Phone Pcp, No Primary Care Provider Unavailabl e Social History Tobacco Use Types Packs/Day Years Used Date Smoking Tobacco: Never Assessed Sex and Gender Information Value Date Recorded Sex Assigned at Not on file Gender Identity Not on file Sexual Orientation Not on file Plan of Treatment Health Maintenance Due Date Last Done Comments Hepatitis C Virus Screening 1960 HIV Screening 02/15/1972 DTaP/Tdap/Td Vaccines (1 - Tdap) 1978 Colonoscopy 02/15/2004 Pneumococcal Vaccines 50+ (1 of 1 - PCV) 2009 Zoster (Shingles) Vaccine (1 of 2) 2009 Influenza Vaccine 09/21/2023 COVID-19 Vaccine ( - 2023-2 5 season) 2023 RSV Vaccine 60 years and old er and Patients (1 - 1-dose 75+ series) 2034 Hepatitis B Vaccines Aged Out No long er eligible based on patient's age to complete this topic Pneumococcal Vaccine: Pediat birgit (0-5 Years) and At-Risk Patients (6 to 49 Years) Aged Out No longer eligible b ased on patient's age to complete this topic Care Teams Manager Of Case Management Relationship Specialty Start Date End Date Pcp, No PCP - General General Medicine 11/01/23
[2024-04-15] MEDS: 0.9 % Sodium Chloride 1,000 ML 999 ML IVCONT (12:47)
--- NOTE | 2024-04-15 13:52 | PC.NURSE ---
pt to CT at this time.
[2024-04-15 16:38] LABS: Glucose, Whole Blood 89 mg/dL (60-115)
--- NOTE | 2024-04-15 16:54 | P.HPHOSP_ITS ---
History of Present Illness Date of Service: 04/15/24 Chief Complaint: Fall 59-year-old man presented to the ER after a syncopal episode at home. Apparently he went outside his home to bring out the trash and felt lightheaded and dizzy and sat down on the steps outiside and went back to the trash again and 3 min later felt lightheaded again and sat down. He ended up going back inside and next thing he knew he was on the floor. Apparently he was on the floor for 10 min and his mother in law was around but didnt do anything. When he came to his mother law told him he had a hard fall and he lost a tooth. He had a mechanical fall on ice 2 days ago with no syncope and 3 weeks ago he was sitting in his car and he suddenly felt lightheaded and missed the light twice and thinks he passed out untill someone came to his car to ask him if he was ok. He has a hx of falls for over 2 years but hasn't seen a specialist to determine what is the cause. He denied any chest pain, nausea, vomiting, diarrhea, fever, chills, recent illness, sick contacts, recent travel. He had head, cervical spine CT both negative for any acute abnormality, chest x-ray negative for consolidation or effusion. No fever leukocytosis noted, stable blood pressure. Not much in the way of medical history other than Mental Health. Blood sugar was 58 in the ER but other than that all other labs are within acceptable limits. Plan will be to place patient on observation for further management and treatment of syncopal episode. Review of Systems 2 Review of Systems: Denies any recent fever chills or decrease in appetite respiratory denies any shortness of breath or cough cardiovascular denies chest pain gastrointestinal denies any dysphagia abdominal pain nausea vomiting or diarrhea genitourinary denies any dysuria frequency or hematuria musculoskeletal denies any joint pain or swelling neuropsych denies any weakness or seizures all other systems reviewed are negative [facility] Medical History (Updated 04/15/24 @ 17:06 by Chelsey García NP) Unspecified mood [affective] disorder Social History Household Members: Family Household Members Other:: , 2 boys, mother in law, 3 children (temporary custody). Housing: House Do you presently have visiting nurse or other home services: Yes ([employer]) Alcohol intake: current Alcohol intake frequency: holidays/special occasions only Patient Tobacco Use Status: Never used Tobacco Smoked in Last 30 Days: No e-Cigarette/Vaping Use: Currently Using Second Hand Smoke Exposure: No Use of substances other than those prescribed or required for medical reasons: Yes Substance Use Type: Marijuana Substance Use Frequency: Daily Have you been hit, kicked, punched, or otherwise hurt by someone within the past year? If so, by whom?: No Do you feel safe in your current relationship?: Yes Is there a partner from a previous relationship who is making you feel unsafe now?: No Are you made to feel afraid or neglected: No Advance Directives: No Advance Directives Information Provided: Yes Advance Directives on File: No Do you have a plan to hurt others: No Plan Recently lost weight without trying: Yes How much weight loss: 14-23 pounds Eating poorly because of decreased appetite: Yes Nutrition screen score: 5 Nutrition Risks: No Nutritional Risk Poor oral hygiene: No service: No Sexual orientation: Straight/Heterosexual Meds Allergies Allergy/AdvReac Type Severity Reaction Status Date / Time bee pollen [bee stings] Allergy Intermediate Facial Verified 04/15/24 10:41 Swelling oxycodone [From OxyContin] Allergy Mild ITCHING/VOM Verified 04/15/24 10:41 ITING acetaminophen [Vicodin] Allergy Unknown Hives Verified 04/15/24 10:41 hydrocodone [HYDROCODONE] AdvReac Severe STOMACH Verified 04/15/24 10:41 CRAMPING Active Medications: Current Medications Acetaminophen (Acetaminophen 325 Mg Tablet) 650 mg PO Q6H PRN PRN Reason: Pain, Mild 1-3,fever,headache Calcium Carbonate (Calcium Carbonate 750 Mg Tab.Chew) 750 mg PO Q4H PRN PRN Reason: Heartburn Enoxaparin Sodium (Enoxaparin Sodium 40 Mg/0.4 Ml Syringe) 40 mg SUBCUT Q24H KIAH Lactated Ringer's (Lr) 1,000 mls @ 80 mls/hr IVCONT .[id number] KIAH Magnesium Hydroxide (Milk Of Magnesia 30 Ml Oral.Susp) 30 ml PO DAILY PRN PRN Reason: Constipation Melatonin (Melatonin 3 Mg Tablet) 6 mg PO BEDTIME PRN PRN Reason: Insomnia Ondansetron HCl (Ondansetron Hcl 4 Mg/2 Ml Vial) 4 mg IVPUSH Q8H PRN PRN Reason: Nausea and Vomiting Sodium Chloride (0.9 % Sodium Chloride Flush 3 Ml Syringe) [facility] Medications ?Medication ?Instructions ?Recorded ?Confirmed ?Last Taken ?Type allopurinol 300 mg tablet 1 tab PO DAILY 03/28/22 04/15/24 04/14/24 History cholecalciferol (vitamin D3) 25 25 mcg PO DAILY 03/28/22 04/15/24 04/14/24 History mcg (1,000 unit) tablet (Vitamin D3) multivitamin 1 tab PO DAILY 03/28/22 04/15/24 04/14/24 History omeprazole 20 mg capsule,delayed 1 cap PO DAILY@0630 03/28/22 04/15/24 04/14/24 History release tamsulosin 0.4 mg capsule 1 cap PO BEDTIME 03/28/22 04/15/24 04/14/24 History calcium carbonate 500 mg PO DAILY 04/15/24 04/15/24 04/14/24 History dextroamphetamine-amphetamine ER 1 cap PO DAILY 04/15/24 04/15/24 04/14/24 History 30 mg 24hr capsule,extend release quetiapine 300 mg tablet 600 mg PO BEDTIME PRN Mood/Sleep 04/15/24 04/15/24 Unknown History Physical Exam 2 Vital Signs and Narrative: Vital Signs: Last Vital Signs Temp 98.3 F 04/15/24 12:48 Pulse 72 04/15/24 16:35 Resp 14 04/15/24 16:35 BP 116/55 L 04/15/24 16:35 Pulse Ox 98 04/15/24 16:35 O2 Del Method Room Air 04/15/24 16:35 BMI result Body Mass Index 45.5 Results Labs 04/15/24 11:04 04/15/24 11:04 Labs: Laboratory Results - last 24 hr 04/15/24 04/15/24 04/15/24 11:03 11:04 16:31 MCV 91.7 MCH 30.6 MCHC 33.3 RDW 12.7 Plt Count 332 MPV 8.7 L Immature Gran % (Auto) 0.2 Neut % (Auto) 58.1 Lymph % (Auto) 29.9 [place] % (Auto) 10.2 Eos % (Auto) 1.2 Baso % (Auto) 0.4 Lymph # (Auto) 1.5 [place] # (Auto) 0.5 Eos # (Auto) 0.1 Baso # (Auto) 0.0 Abs Immat Gran (auto) 0.01 Absolute Neuts (auto) 2.9 Absolute Nucleated RBC 0.000 Nucleated RBC % (auto) 0.0 Hold Blue Top SEE NOTE Anion Gap 9 L Estim Creat Clear Calc 111.5 Estimated GFR > 60 POC Glucose 89 Random Glucose 58 L* Calcium 8.9 D Magnesium 2.1 Total Bilirubin 0.3 Direct Bilirubin 0.1 AST 19 ALT 12 Alkaline Phosphatase 90 B-Natriuretic Peptide 28 Total Protein 6.8 Albumin 3.7 Influenza Type A (PCR) NEGATIVE Influenza Type B (PCR) NEGATIVE RSV RNA Qual (PCR) NEGATIVE SARS-CoV-2 RNA (RT-PCR) NEGATIVE Imaging Radiologist's Impressions: Impressions Chest X-Ray 04/15/24 11:15 IMPRESSION: No acute airspace disease. Electronically signed by: Ganesh Domínguez MD 04/15/2024 12:29 PM EST RP Cervical Spine CT 04/15/24 11:36 IMPRESSION: 1. No CT evidence of acute cervical spine fracture or injury. 2. Degenerative spondylosis, mild to moderate in severity. Findings suggestive of DISH. 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 No high-grade central canal narrowing. 3. Additional ancillary findings as discussed. Electronically signed by: Timmy Oleary MD 04/15/2024 02:35 PM EST RP Head CT 04/15/24 13:49 IMPRESSION: No acute intracranial abnormality. No fracture seen. Electronically signed by: Timmy Oleary MD 04/15/2024 02:29 PM EST RP Assessment and Plan (1) Unspecified mood [affective] disorder: Status: Inactive (2) Syncope: Qualifiers: Syncope type: unspecified Qualified Code(s): R55 - Syncope and collapse Status: Acute Plan 64-year-old man placed on observation after an episode of syncope Syncope and collapse Unknown etiology We will place on telemetry with cardiac monitoring echocardiogram eeg IV fluids Check orthostatic blood pressures Check UA to rule out infection neurology consultation Mental health Continue home medications BPH tamsulosin DVT prophylaxis Lovenox Full code Quality Stroke Does the patient have a stroke diagnosis?: No VTE Prior VTE?: No VTE Risk Level:: Medical - moderate - high VTE Device Contraindication: Treatment Not Indicated VTE Drug Contraindication: N/A - Med Ordered
[2024-04-15] MEDS: Enoxaparin Sodium 40 MG/0.4 ML SYRINGE SUBCUT (17:06)
[2024-04-15] MEDS: Lactated Ringers 1,000 ML 80 ML IVCONT (17:06)
--- NOTE | 2024-04-15 18:04 | PHA.MEDREC ---
Addendum entered by Shae Winter RPh 04/15/24 18:40: [facility] REVIEWED Original Note: Pharmacy Consult ? Medication Reconciliation Pharmacy has completed the medication reconciliation. Spoke with patient and he confirmed his medications. He confirmed he is still taking the Quetiapine 300mg tab and states he takes 2 tabs as needed for his mood or sleep. He confirmed he still has and is still taking the dextroamphetamine-amphetamine 30mg tab at home and confirmed he takes one daily of those daily. He confirmed he took his medications yesterday and never got to take any this morning.
[2024-04-15 18:28] LABS: Appearance Urine Clear; Color Urine Yellow; Glucose Urine UA Negative (Negative); Leukocyte Esterase Urine Negative (Negative); Nitrite Urine Negative (Negative); PH 7.5 (5.0-9.0); Specific Gravity - Urine 1.015 (1.005-1.025); Urine Blood Negative (Negative); Urine Ketones Negative (Negative); Urine Protein Negative (Neg-Trace)
[2024-04-15 18:40] LABS: Amphetamine Screen Urine Not Detected (Not Detect); Barbiturates, Urine Not Detected (Not Detect); Benzodiazepines Screen Urine Not Detected (Not Detect); Buprenorphine Scr Not Detected (Not Detect); Cannabinoid Screen Urine POSITIVE (Not Detect); Cocaine Screen Urine Not Detected (Not Detect); Fentanyl, urine Not Detected (Not Detect); Methadone Screen, Urine Not Detected (Not Detect); Opiate Screen Urine Not Detected (Not Detect); Oxycodone Screen Urine Not Detected (Not Detect); Phencyclidine Screen Urine Not Detected (Not Detect)
[2024-04-15] MEDS: Acetaminophen 325 MG TABLET 650 MG PO (20:59)
[2024-04-16] VITALS (7 sets, daily range): BP systolic 128–156; BP diastolic 70–81; PULSE 55–85; RESP 13–20; TEMP 36.2–37; O2SAT 98–100; BMI 22.3
--- NOTE | 2024-04-16 | EEG_ITS ---
This is a 16-channel EEG with an EKG lead. The patient is reported awake during the tracing. Background EEG rhythm is low amplitude; mixed theta, beta with no obvious asymmetry or paroxysmal tendency. Photic stimulation does not produce any significant abnormality. Hyperventilation is not performed. Cardiac lead does not reveal any significant abnormality. No sharp wave spikes or paroxysmal tendency noted. IMPRESSION: No significant abnormality noted on this EEG. MD JOSH Cartagena/[facility] / [phone]
--- NOTE | 2024-04-16 00:32 | PC.NURSE ---
Addendum entered by Puma Kahn 04/16/24 00:42: pt refused seroquel, this RN stated will reach out to hospitalist providers to come speak to him pt states i don't care about who comes and speaks to me. Whitley ORELLANA aware. Original Note: pt rang call kim, upon entering room pt is yelling at this RN about his med rec being completed earlier in day but haven't received his home meds tonight. this RN spoke to patient stating will reach out to hospitalist providers to find out why meds weren't ordered, pt continues to yell at this RN. message sent to Whitley ORELLANA. per REYNA meds held d/t dizziness/syncope symptoms. will order quetiapine for tonight and can continue other medications tomorrow morning.
[2024-04-16] MEDS: Gabapentin 600 MG TABLET PO ×4 (01:22→20:29)
[2024-04-16] MEDS: carBAMazepine ER 200 MG TAB.ER.12H PO ×3 (01:22→20:28)
[2024-04-16] MEDS: Lactated Ringers 1,000 ML 80 ML IVCONT (05:42)
[2024-04-16 05:43] LABS: Thyroid Stimulating Hormone 0.63 uIU/mL (0.32-4.0)
[2024-04-16] MEDS: Omeprazole 20 MG CAPSULE.DR PO (06:52)
--- NOTE | 2024-04-16 06:54 | PC.NURSE ---
alert, oriented. c/o mild right hip pain. no othr complaints. no neuro deficits.
--- NOTE | 2024-04-16 07:00 | CA_ITS ---
Transthoracic Echocardiogram Patient (Last, First, Middle): Gilbert Baker A Gender: Male Date of : 1960 Age: 64 Procedure Date: 04/16/2024 Procedure Type: Transthoracic Echocardiogram Location: ER Height: 172.72 cm Weight: 66.68 kg BSA: 1.79 m2 Heart Rate: 56 bpm BP: 140 / 80 mmHg Lead Manufacturing Technician: Referring MD: Chelsey García NP Symptoms: syncope Study Quality: Good ECG Rhythm: Sinus Conclusions: - The left ventricular systolic function is mildly decreased. Visually estimated LVEF about 50%. - Possible hypokinesis in the mid inferior septum. - No obvious valvular pathology seen on this study. Findings Left Ventricle Normal left ventricular cavity size. The left ventricular systolic function is mildly decreased. Diastolic function is normal for age. There is mild septal and mild basal asymmetric hypertrophy. Visually estimated LVEF about 50%. Possible hypokinesis in the mid inferior septum. Right Ventricle Normal right ventricular cavity size and systolic function. Atria The left atrium is mildly dilated. The right atrium is normal in size. Aortic Valve There is a normal trileaflet aortic valve. There is no aortic valve stenosis. There is no aortic valve regurgitation. Mitral Valve The mitral valve appears normal. There is trace mitral valve regurgitation. There is no mitral valve stenosis. Pulmonic Valve The pulmonic valve is likely normal. Tricuspid Valve There is no tricuspid valve regurgitation. Tricuspid regurgitation envelope is inadequate for calculation of right ventricular systolic pressure. Great Vessels The asc aorta is normal in size. Venous The inferior vena cava is normal in size and collapses greater than 50% with inspiration. Pericardium/Pleural There is no evidence of pericardial effusion. Prior Study Comparison No prior study available for comparison. Recommendations, Care & Conclusions No obvious valvular pathology seen on this study. Measurements 2D Linear Measurements IVSd: 1.20 0.6-0.9/0.6-1.0 cm LVIDd: 4.02 3.9-5.3/4.2-5.9 cm LVIDd Index: 2.25 2.4-3.2/2.2-3.1 cm/m2 LVIDs: 2.49 2.0-3.6 cm LVPWd: 1.23 0.7-1.1 cm LA Diam: 3.30 2.7-3.8/3.0-4.0 cm LAIDs Index: 1.84 1.5-2.3 cm/m2 LV Mass: 211.51 67-162/88-224 g LV Mass Index: 118.16 43-95/49-115 g/m2 LVOT Diam: 2.40 3.0+(-)1.3 cm 2D Systolic Function EF 4C: 60.60 >55% EF 2C: 68.80 >55% EF BiP: 63.10 >55% Mitral Valve MV Pk E: 0.83 MV Decel Time: 300.00 E'Lateral: 10.00 E'Medial: 9.46 E/E' Med: 8.70 E/E' Lat: 8.30 PHT: 88.00 MVA PHT: 2.50 Decel [place]: 2.76 Aortic Valve AoV Pk Mynor: 1.29 AoV Pk Grad: 7.00 LVOT LVOT Pk Mynor: 0.77 LVOT Mn Mynor: 0.47 LVOT VTI: 0.17 LVOT Pk Grad: 2.00 LVOT Mn Grad: 1.00 LVOT Diam: 2.40 LVOT Area: 4.52 Diastolic Function MV Pk E: 0.83 E'Medial: 9.46 E/E' Med: 8.70 E' Laterial: 10.00 E/E' Lat: 8.30 Right Ventricle TAPSE (mm): 30.40 TVS' Mynor: 12.60 Tricuspid Valve TR Pk Mynor: 2.23 TR Pk Grad: 20.00 Great Vessels Aorta Sinus of Valsalva: 2.90 2.0-3.5 cm Ao Asc: 2.60 2.1-3.4 cm Pulmonary Valve PV Pk Mynor: 0.86 Peak PV Grad: 3.00 Updated in Other Vendor System with Status of Final Danilo Bell MD electronically signed on 04/16/2024 12:04:53 PM with status of Final
[2024-04-16] MEDS: Cholecalciferol (Vitamin D3) 25 MCG TABLET PO (08:59)
[2024-04-16] MEDS: Multivitamin TABLET 1 TAB PO (08:59)
[2024-04-16] MEDS: Calcium Oyster Shell Elemental 500 MG TABLET PO (08:59)
[2024-04-16] MEDS: 0.9 % Sodium Chloride Flush 3 ML SYRINGE IVFLUSH ×3 (09:00→20:29)
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
--- NOTE | 2024-04-16 09:30 | PC.NURSE ---
Off unit for EEG
[2024-04-16] MEDS: Dextroamphetamine/Amphetamine XR 10 MG CAP.ER.24H 30 MG PO (10:45)
[2024-04-16] MEDS: allopurinoL 300 MG TABLET PO (10:46)
--- NOTE | 2024-04-16 12:25 | MHC.CM.PN ---
CM met with Patient at bedside, in the ED, and addressed THORNE with him (original was given to Patient and a copy will be placed on the chart). Patient lives in a house with his /HCP and 2 adult children and he uses both a walker and/or a cane at times. Patient has a [employer] 26 hours/week and his goal is to return home and resume those services. CM has initiated and will follow for dc planning. PCP is Dr.Ronald Cullen and will transport to home.
--- NOTE | 2024-04-16 12:44 | HO.PM.IMPN ---
Subjective Subjective Date of Service: 04/16/24 Review of Systems Follow up syncope No symptoms overnight No arrhythmia on telemetry Physical Exam Vital Signs: Vital Signs: Last Vital Signs Temp 98.3 F 04/16/24 08:29 Pulse 66 04/16/24 08:29 Resp 17 04/16/24 08:29 BP 140/81 H 04/16/24 08:29 Pulse Ox 98 04/16/24 08:29 O2 Del Method Room Air 04/16/24 08:29 BMI result Body Mass Index 45.5 Appearing in no acute distress lung sounds are clear to auscultation heart regular rate rhythm, clear S1, S2 positive bowel sounds, abdomen is soft, nontender neuro patient is alert x3, no focal deficits Objective Data Active Medications Acetaminophen (Acetaminophen 325 Mg Tablet) 650 mg PO Q6H PRN PRN Reason: Pain, Mild 1-3,fever,headache Last Admin: 04/15/24 20:59 Dose: 650 mg Documented By: BRAXTON Allopurinol (Allopurinol 300 Mg Tablet) 300 mg PO DAILY [facility] Last Admin: 04/16/24 10:46 Dose: 300 mg Documented By: TYLER Amphetamine/Dextroamphetamine (Dextroamphetamine/Amphetamine Xr 10 Mg Cap.Er.24h) 30 mg PO DAILY [facility] Last Admin: 04/16/24 10:45 Dose: 30 mg Documented By: TYLER Calcium Carbonate (Calcium Carbonate 750 Mg Tab.Chew) 750 mg PO Q4H PRN PRN Reason: Heartburn Calcium Carbonate (Calcium Oyster Shell Elemental 500 Mg Tablet) 500 mg PO DAILY [facility] Last Admin: 04/16/24 08:59 Dose: 500 mg Documented By: TYLER Carbamazepine (Carbamazepine Er 200 Mg Tab.Er.12h) 200 mg PO BID [facility] Last Admin: 04/16/24 08:59 Dose: 200 mg Documented By: TYLER Enoxaparin Sodium (Enoxaparin Sodium 40 Mg/0.4 Ml Syringe) 40 mg SUBCUT Q24H [facility] Last Admin: 04/15/24 17:06 Dose: 40 mg Documented By: CHU Gabapentin (Gabapentin 600 Mg Tablet) 600 mg PO TID [facility] Last Admin: 04/16/24 09:00 Dose: 600 mg Documented By: TYLER Magnesium Hydroxide (Milk Of Magnesia 30 Ml Oral.Susp) 30 ml PO DAILY PRN PRN Reason: Constipation Melatonin (Melatonin 3 Mg Tablet) 6 mg PO BEDTIME PRN PRN Reason: Insomnia Multivitamins/Vitamin C (Multivitamin Tablet) 1 tab PO DAILY [facility] Last Admin: 04/16/24 08:59 Dose: 1 tab Documented By: TYLER Omeprazole (Omeprazole 20 Mg Capsule.) 20 mg PO DAILY@0630 [facility] Last Admin: 04/16/24 06:52 Dose: 20 mg Documented By: TYLER Ondansetron HCl (Ondansetron Hcl 4 Mg/2 Ml Vial) 4 mg IVPUSH Q8H PRN PRN Reason: Nausea and Vomiting Quetiapine Fumarate (Quetiapine Fumarate 300 Mg Tablet) 600 mg PO BEDTIME PRN PRN Reason: Mood/Sleep Sodium Chloride (0.9 % Sodium Chloride Flush 3 Ml Syringe) 3 ml IVFLUSH QSHIFT [facility] Last Admin: 04/16/24 09:00 Dose: 3 ml Documented By: TYLER Vitamin D (Cholecalciferol (Vitamin D3) 25 Mcg Tablet) 25 mcg PO DAILY [facility] Last Admin: 04/16/24 08:59 Dose: 25 mcg Documented By: TYLER Labs 04/15/24 11:04 04/15/24 11:04 Labs: Laboratory Results - last 24 hr 04/15/24 04/15/24 04/16/24 16:31 18:21 04:20 POC Glucose 89 TSH 0.63 Urine Color Yellow Urine Appearance Clear Urine pH 7.5 Ur Specific [place] 1.015 Urine Protein Negative Urine Glucose (UA) Negative Urine Ketones Negative Urine Blood Negative Urine Nitrite Negative Ur Leukocyte Esterase Negative Urine Opiates Screen Not Detected Ur Buprenorphine Scrn Not Detected Ur Oxycodone Screen Not Detected Urine Methadone Screen Not Detected Urine Fentanyl Screen Not Detected Ur Barbiturates Screen Not Detected Ur Phencyclidine Scrn Not Detected Ur Amphetamines Screen Not Detected U Benzodiazepines Scrn Not Detected Urine Cocaine Screen Not Detected U Marijuana (THC) Screen POSITIVE H Assessment and Plan (1) Syncope: Status: Acute Plan 64-year-old man placed on observation after an episode of syncope Syncope and collapse Unknown etiology Nothing abnormal noted on telemetry echocardiogram with EF of 50%, possible hypokinesis in mid inferior septum, no obvious valvular pathology Orthostatic blood pressures negative Negative UA neurology consultation> differentials include cardiac arrhythmia versus seizure disorder, recommend cardiac monitoring and EEG, if initial evaluation negative may require 48 hour ambulatory EEG, recommend to patient not to drive and not be involved in activities that could put his life in danger eeg results pending Mental health Continue home medications BPH tamsulosin DVT prophylaxis Lovenox Full code Quality Stroke Does the patient have a stroke diagnosis?: No VTE Prior VTE?: No VTE Risk Level:: Medical - moderate - high VTE Device Contraindication: Treatment Not Indicated VTE Drug Contraindication: N/A - Med Ordered
[2024-04-16] MEDS: Acetaminophen 325 MG TABLET 650 MG PO (14:26)
[2024-04-16] MEDS: Enoxaparin Sodium 40 MG/0.4 ML SYRINGE SUBCUT (16:12)
[2024-04-16] MEDS: traMADoL HCL 50 MG TABLET 25 MG PO (20:28)
[2024-04-17 03:13] VITALS: BP 146/72; PULSE 62; RESP 20; TEMP 36.3; O2SAT 99
[2024-04-17] MEDS: Omeprazole 20 MG CAPSULE.DR PO (05:12)
--- NOTE | 2024-04-17 07:43 | PM.DS ---
DS: Providers Provider Date of Service: 04/17/24 Date of admission: 04/15/24 16:49 Date of discharge: 04/17/24 Primary care physician: Jun Cullen MD Consults: 04/15/24 17:24 Consult to Neurology Routine Consulting Provider: [facility] Reason for consultation: syncope DS: Diagnosis Discharge Diagnosis (1) Syncope: Status: Acute DS: Summary Hospital Course Hospital Course: 59-year-old man presented to the ER after a syncopal episode at home. Apparently he went outside his home to bring out the trash and felt lightheaded and dizzy and sat down on the steps outiside and went back to the trash again and 3 min later felt lightheaded again and sat down. He ended up going back inside and next thing he knew he was on the floor. Apparently he was on the floor for 10 min and his mother in law was around but didnt do anything. When he came to his mother law told him he had a hard fall and he lost a tooth. He had a mechanical fall on ice 2 days ago with no syncope and 3 weeks ago he was sitting in his car and he suddenly felt lightheaded and missed the light twice and thinks he passed out untill someone came to his car to ask him if he was ok. He has a hx of falls for over 2 years but hasn't seen a specialist to determine what is the cause. He denied any chest pain, nausea, vomiting, diarrhea, fever, chills, recent illness, sick contacts, recent travel. He had head, cervical spine CT both negative for any acute abnormality, chest x-ray negative for consolidation or effusion. No fever leukocytosis noted, stable blood pressure. Not much in the way of medical history other than Mental Health. Blood sugar was 58 in the ER but other than that all other labs are within acceptable limits. Plan will be to place patient on observation for further management and treatment of syncopal episode. 64-year-old man admitted for syncope and collapse. Unfortunately no obvious etiology was found for the syncopal episodes that he has had however head CT was negative for any acute abnormality, echocardiogram showed EF of 50% with possible hypokinesis and mid inferior septum and no obvious valvular pathology. EEG was also negative. Patient has been monitored on telemetry since admission and no arrhythmia, bradycardia or extreme tachycardia was found. Patient was seen and evaluated by Neurology who recommended a 48 hour ambulatory EEG and patient should also have a Holter monitor placed as well. The neurologist recommended that the patient do not drive and should avoid activities that would put his life in danger if he has a syncopal episode. The patient needs to schedule an appointment with his PCP for referrals Mental health. Continue home medications BPH. Continue tamsulosin Time Attestation Discharge Coordination Time (in mins): 40 Quality: Safe Use of Opioids Does Pt have an Active Cancer Diagnosis on the Problem List?: No Quality: Stroke Does the patient have a stroke diagnosis?: No Physical Exam Vital Signs: Vital Signs: Last Vital Signs Temp 97.3 F 04/17/24 03:13 Pulse 62 04/17/24 03:13 Resp 20 04/17/24 03:13 BP 146/72 H 04/17/24 03:13 Pulse Ox 99 04/17/24 03:13 O2 Del Method Room Air 04/16/24 23:43 BMI result Body Mass Index 22.3 Appearing in no acute distress head is normocephalic atraumatic eyes pupils are PERRLA sclera is anicteric mouth throat mucous membranes are intact and moist neck is supple no lymphadenopathy, no JVD noted lung sounds are clear to auscultation heart regular rate rhythm, clear S1, S2 positive bowel sounds, abdomen is soft, nontender neuro patient is alert x3, no focal deficits Discharge Plan Discharge Anticipated Discharge Date/Time: 04/17/24 07:40 Patient Disposition: Home, Self-Care Discharge Diagnosis: Syncope Referrals: Jun Cullen MD [Primary Care Provider] - 1 Week Discharge Medications: Continued multivitamin Tablet 1 tab PO DAILY tamsulosin 0.4 mg capsule 1 cap PO BEDTIME omeprazole 20 mg capsule,delayed release(DR/EC) 1 cap PO DAILY@0630 allopurinol 300 mg tablet 1 tab PO DAILY cholecalciferol (vitamin D3) [Vitamin D3] 25 mcg (1,000 unit) Tablet 25 mcg PO DAILY gabapentin 600 mg Tablet 600 mg PO TID Qty: 90 0RF carbamazepine 200 mg Tablet Extended Release 12 Hr 200 mg PO BID Qty: 60 0RF calcium carbonate 500 mg calcium (1,250 mg) Tablet 500 mg PO DAILY dextroamphetamine-amphetamine 30 mg capsule,extended release 24hr 1 cap PO DAILY quetiapine 300 mg tablet 600 mg PO BEDTIME PRN (Reason: Mood/Sleep) Discharge Orders: Discharge Order (Routine); Ordered 04/17/24 Ordered By: Chelsey García Diet: Advance to usual diet Activity on Discharge: As tolerated Stand Alone Forms: Patient Portal Discharge page Print Language: Polish Care Plan Goals: Do not drive or involve yourself in activities that could put your life at danger if you have an episode of syncope Health Concerns: Syncope Plan of Treatment: Follow-up with primary care provider for referral for 48 hour ambulatory EEG and Holter monitor Assessment: See discharge summary
[2024-04-17 07:48] VITALS: BP 139/73; PULSE 66; RESP 18; TEMP 36.3; O2SAT 100
[2024-04-17] MEDS: Multivitamin TABLET 1 TAB PO (07:51)
[2024-04-17] MEDS: allopurinoL 300 MG TABLET PO (07:52)
[2024-04-17] MEDS: carBAMazepine ER 200 MG TAB.ER.12H PO (07:52)
[2024-04-17] MEDS: Calcium Oyster Shell Elemental 500 MG TABLET PO (07:52)
[2024-04-17] MEDS: Cholecalciferol (Vitamin D3) 25 MCG TABLET PO (07:52)
[2024-04-17] MEDS: Dextroamphetamine/Amphetamine XR 10 MG CAP.ER.24H 30 MG PO (07:52)
[2024-04-17] MEDS: Gabapentin 600 MG TABLET PO (07:52)
[2024-04-17] MEDS: 0.9 % Sodium Chloride Flush 3 ML SYRINGE IVFLUSH (07:53)
[2024-04-17 08:01] LABS: Glucose, Whole Blood 76 mg/dL (60-115)
[2024-04-17] MEDS: traMADoL HCL 50 MG TABLET 25 MG PO (10:25)
--- NOTE | 2024-04-17 11:01 | MHC.CM.PN ---
PT MEDICALLY CLEARED FOR DC HOME W/[employer] OF [employer] H[employer], NO NEW SERVICES ORDERED, FAMILY HAS TRANSPORTED PT HOME.
== END 2024-04-17 10:53 | disposition home or self-care (01) ==
LOC: HO.ED 16:30 → HO.EDOVER 16:55 → HO.IMC 04-16 13:45
PROVIDERS: Admitting Provider Nurse Practitioner Acute Care; Emergency Provider Emergency Medicine; PCP Family Medicine; Visit Provider Nurse Practitioner Acute Care
DX: R55 Syncope and collapse (principal); S09.90XA Unspecified injury of head, initial encounter; W19.XXXA Unspecified fall, initial encounter; Y93.9 Activity, unspecified; Y92.9 Unspecified place or not applicable; Y99.9 Unspecified external cause status; R06.02 Shortness of breath; R00.2 Palpitations; M54.2 Cervicalgia; F39 Unspecified mood [affective] disorder; Z79.899 Other long term (current) drug therapy; Z03.818 Encounter for observation for suspected exposure to other biological agents ruled out
CPT/HCPCS: 0241U; 36415; 70450; 71045; 72125; 73502; 80053; 80307; 81003; 82248; 82947; 83735; 83880; 84443; 84484; 85025; 93005; 93306; 95816; 96360; 96361; 96372; 99222; 99285; J1650; J7120; Q9957

== ENCOUNTER → 2024-04-15 10:58 | Outpatient (BNV) | payer OTHER, SELFPAY | PROVIDERS: Emergency Provider Emergency Medicine; PCP Family Medicine; Visit Provider Internal Medicine | DX: R94.31 Abnormal electrocardiogram [ECG] [EKG] (principal); W19.XXXA Unspecified fall, initial encounter | CPT/HCPCS: 93010 ==

== ENCOUNTER → 2024-04-15 11:15 | Outpatient (BNV) | payer OTHER, SELFPAY | PROVIDERS: Emergency Provider Emergency Medicine; PCP Family Medicine; Visit Provider Radiology Diagnostic Radiology | DX: R06.02 Shortness of breath (principal); M54.2 Cervicalgia | CPT/HCPCS: 70450; 71045; 72125 ==

== ENCOUNTER 2024-04-15 16:49 | Outpatient (BNV) | payer OTHER, SELFPAY | END 2024-04-16 07:00 | PROVIDERS: Admitting Provider Nurse Practitioner Acute Care; Emergency Provider Emergency Medicine; PCP Family Medicine; Visit Provider Internal Medicine | DX: I42.2 Other hypertrophic cardiomyopathy (principal) | CPT/HCPCS: 93306 ==

== ENCOUNTER 2024-04-15 16:49 | Outpatient (BNV) | payer OTHER, SELFPAY | END 2024-04-16 20:15 | PROVIDERS: Admitting Provider Nurse Practitioner Acute Care; Emergency Provider Emergency Medicine; PCP Family Medicine; Visit Provider Student in an Organized Health Care Education/Training Program | DX: M25.551 Pain in right hip (principal) | CPT/HCPCS: 73502 ==

== ENCOUNTER → 2024-04-15 16:49 | Outpatient (BNV) | payer OTHER, SELFPAY | PROVIDERS: Admitting Provider Nurse Practitioner Acute Care; Emergency Provider Emergency Medicine; PCP Family Medicine; Visit Provider Nurse Practitioner Acute Care | DX: R55 Syncope and collapse (principal) | CPT/HCPCS: 99239 ==

== ENCOUNTER → 2024-04-15 16:49 | Outpatient (BNV) | payer OTHER, SELFPAY | PROVIDERS: Admitting Provider Nurse Practitioner Acute Care; Emergency Provider Emergency Medicine; PCP Family Medicine; Visit Provider Psychiatry & Neurology Neurology | DX: R55 Syncope and collapse (principal) | CPT/HCPCS: 99223 ==

== ENCOUNTER 2024-04-19 09:33 | Emergency (ER) | payer OTHER, SELFPAY ==
[2024-04-19] VITALS (7 sets, daily range): BP systolic 114–159; BP diastolic 58–78; PULSE 71–78; RESP 16–20; TEMP 36.6–37.4; O2SAT 95–100; BMI 20.9
--- NOTE | ~2024-04-19 | CT_ITS ---
EXAMINATION: CT CERVICAL SPINE WITHOUT CONTRAST CLINICAL INFORMATION: Status post fall. COMPARISON: April 15, 2024. TECHNIQUE: Contiguous axial images through the cervical spine using 3 mm collimation with bone and soft tissue algorithm. Sagittal and coronal reformatted images acquired. This CT examination was performed using dose optimization techniques as appropriate, variously including the following: *Automated exposure control *Adjustment of mA and/or kV according to patient size (this includes techniques or standardized protocols for targeted exams where dose is matched to indication/reason for exam; i.e. extremities or head) *Use of iterative reconstruction technique. DLP: 353.46 mGy cm. FINDINGS: Degenerative changes in the periodontal C1 region and craniocervical junction. Craniocervical junction is intact. Multilevel marginal osteophyte formation and endplate sclerosis from C2 to C7. Facet joint hypertrophy/degenerative changes at C2-3, C5-6 and C6-7 levels. There is normal alignment between the vertebral bodies and the facet joints. C1 is intact. C2 is intact. C3 is intact. C4 is intact. C5 is intact. C6 is intact. C7 is intact. No prevertebral compartment hematoma there is edema pattern in the retropharynx at C3-4 level. There is decreased AP diameter of the central spinal canal with probable short pedicles. Fat density well-circumscribed lesion at C6 matter is an intraosseous hemangioma versus lipoma. Bilateral apical lung scarring.. CT/CT cervical spine wo IV con IMPRESSION: Multilevel cervical spondylosis suggesting DISH, without acute fracture or trauma-related listhesis. 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 Edema pattern in the retropharynx at C3-4. Fleischner guidelines were followed. Electronically signed by: Ganesh Domínguez MD 04/19/2024 12:05 PM [facility]
--- NOTE | ~2024-04-19 | CT_ITS ---
EXAMINATION: CT HEAD WITHOUT CONTRAST CLINICAL INFORMATION: fall with head strike COMPARISON: April 15, 2024. TECHNIQUE: Contiguous axial imaging was performed from the skull base to vertex without intravenous administration of contrast. This CT examination was performed using dose optimization techniques as appropriate, variously including the following: *Automated exposure control *Adjustment of mA and/or kV according to patient size (this includes techniques or standardized protocols for targeted exams where dose is matched to indication/reason for exam; i.e. extremities or head) *Use of iterative reconstruction technique DLP: 647.88 mGy-cm FINDINGS: Bony calvarium is intact. Skull base is intact. No acute intracranial hemorrhage, mass effect, midline shift, hydrocephalus or herniation. 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 Posterior cranial fossa contents demonstrated no acute hemorrhage or mass effect. Sellar/suprasellar region demonstrated no gross masses. Craniocervical junction is intact with a partially calcified pannus formation in the periodontal region. No air-fluid levels in the paranasal sinuses. Tympanic cavities and mastoid air cells are aerated with poor pneumatization of the right mastoid. Edentulous.. CT/CT head/brain wo IV con IMPRESSION: No acute fracture, bony calvarium. No acute intracranial hemorrhage. Stable brain. Electronically signed by: Ganesh Domínguez MD 04/19/2024 11:47 AM [facility]
--- NOTE | ~2024-04-19 | MR_ITS ---
CLINICAL HISTORY: ? neck hyperext inj. Prevert swelling C3,[address] MR NECK WITHOUT CONTRAST Comparison: CT/OR/SR - CT CERVICAL SPINE WO IV CON - 04/19/24 10:47 EST Findings: Signal alteration in the retropharynx from C1-C5 consistent with edema. Mucosal pharyngeal space, parapharyngeal fat and epiglottis are intact. Limited evaluation for an organized fluid collection without IV contrast. Airway is patent. Parotid and submandibular glands are symmetrical. No thyromegaly or lymphadenopathy. Normal flow voids in the great vessels. No osseous marrow replacement process. Craniocervical junction unremarkable. Impression: 1. Retropharyngeal edema with no evidence for acute adenotonsillitis, epiglottitis or other acute inflammatory process. 2. No lymphadenopathy. No definite jugular vein thrombosis. 3. Limited evaluation for a discrete abscess without intravenous contrast. 4. Consider follow-up CT neck with IV contrast. This document has been electronically signed by: Madeline Mansfield DO on 04/19/2024 17:47:40
--- NOTE | ~2024-04-19 | MR_ITS ---
CLINICAL HISTORY: question of ligamentous C-spine injury MR cervical spine without gadolinium Comparison: CT/MS/SR - CT CERVICAL SPINE WO IV CON - 04/19/24 10:47 EST Findings: Reversal of the cervical lordosis. Mild heterogeneous marrow signal with minimal marrow edema along the inferior endplate of C3 felt to be degenerative. Round focus of T2 and STIR signal hyperintensity noted at C6 anteriorly may reflect a lipid poor hemangioma, which corresponds to associated lucency on CT, otherwise is nonspecific. No evidence for ligamentous injury. Redemonstrated retropharyngeal effusion measuring up to 1.1 cm of the C3 level is nonspecific. Additional fluid tracking along the deep spaces of the neck, nonspecific. Mildly prominent scattered lymph nodes throughout the neck. Visualized intracranial contents are unremarkable. Short-segment of centrally increased T2 intramedullary signal of the C2 level measuring 1.7 cm in craniocaudal dimension measuring up to 0.7 cm in transverse dimension on axial. No susceptibility artifact to suggest blood products. Differentials include transverse myelitis, nonhemorrhagic cord contusion in the setting of trauma, demyelination amongst other etiologies. Clinical correlation with follow-up is advised. Multilevel facet arthropathy, uncovertebral hypertrophy and posterior disc osteophyte complexes. [place] right and severe left bilateral foraminal stenoses at C2-C3. Mild spinal canal narrowing. Moderate spinal canal narrowing at C3-C4 with severe bilateral foraminal stenoses, left worse than right. Moderate spinal canal narrowing at C4-C5 with mild bilateral foraminal stenoses. Moderate spinal canal narrowing at C5-C6 with severe bilateral foraminal stenoses. Mild spinal canal narrowing at C6-C7 with severe bilateral foraminal stenoses. IMPRESSION: 1. No acute fracture. 2. No evidence of ligamentous injury. 3. Central abnormal cord signal at the C2 level, please see discussion above. 4. Redemonstrated retropharyngeal effusion. 5. Advanced multilevel cervical spondylosis as described. This document has been electronically signed by: Fede Marquez MD on 04/19/2024 21:11:38
--- NOTE | ~2024-04-19 | XR_ITS ---
EXAMINATION: XR THORACIC SPINE CLINICAL INFORMATION: fall, tenderness COMPARISON: None available. TECHNIQUE: 3 views of the thoracic spine were obtained. FINDINGS: There is no scoliosis. There is normal kyphosis. There is no fracture, compression deformity, subluxation, or suspicious bone lesion. There is no malalignment. There are mild degenerative changes throughout. More pronounced degenerative spondylosis of the cervical spine noted on the swimmer's view. The imaged soft tissues and lung structures appear normal. XR/XR thoracic spine 3V IMPRESSION: 1. No acute finding of the thoracic spine. Electronically signed by: Timmy Oleary MD 04/19/2024 12:08 PM [facility] [place]
--- NOTE | ~2024-04-19 | XR_ITS ---
EXAMINATION: XR SHOULDER, LEFT CLINICAL INFORMATION: fall, scapular tenderness COMPARISON: None available. TECHNIQUE: AP external rotation, Grashey, scapular Y, and axillary views of the left shoulder. FINDINGS: Normal bone mineralization. No fracture, dislocation, or suspicious bone lesion. Normal alignment. The scapula appears intact. The glenohumeral joint demonstrate mild to moderate degenerative arthrosis with small undersurface spurs. Postop changes in the AC joint from prior subacromial decompression. There is a type I acromion. No undersurface spurring. The subacromial space is preserved. Subtle calcification of the supraspinatus tendon consistent with calcific tendinopathy. Remainder of the soft tissue and bony structures appear normal. XR/XR shoulder LT min 2V IMPRESSION: 1. No acute findings of the left shoulder. No scapular fracture identified. 2. 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 3. Postoperative changes to the AC joint. Electronically signed by: Timmy Oleary MD 04/19/2024 12:06 PM [facility]
--- NOTE | ~2024-04-19 | CT_ITS ---
EXAMINATION: CT FACIAL BONES WITHOUT CONTRAST CLINICAL INFORMATION: Status post fall. COMPARISON: None available. TECHNIQUE: Contiguous axial images through the maxillofacial bones using 3 mm collimation with bone and soft tissue algorithm. Sagittal and coronal reformatted images acquired. This CT examination was performed using dose optimization techniques as appropriate, variously including the following: *Automated exposure control *Adjustment of mA and/or kV according to patient size (this includes techniques or standardized protocols for targeted exams where dose is matched to indication/reason for exam; i.e. extremities or head) *Use of iterative reconstruction technique DLP: 355.74 mGy centimeter. FINDINGS: Limited by patient's motion artifact. The nasal bones, nasal septum and vomer are grossly intact. The orbits are grossly intact. The eyeballs are intact. No hematoma, intraconal or extraconal compartments. The zygomatic arc*intact. The maxilla pterygoid plates are intact. The mandible is grossly intact. Temporomandibular joints are intact. Edentulous, maxilla. Poor dentition, mandible. No air-fluid levels in the paranasal sinuses. Tympanic cavities are aerated. CT/CT facial bones wo IV con IMPRESSION: Limited by patient's motion artifact demonstrated no acute maxillofacial bone fracture or gross intraorbital hematoma. Electronically signed by: Ganesh Domínguez MD 04/19/2024 11:54 AM EST
--- NOTE | 2024-04-19 09:43 | ECG_ITS ---
Test Reason : FALL Blood Pressure : */* mmHG Vent. Rate : 74 BPM Atrial Rate : 74 BPM P-R Int : 162 ms QRS Dur : 76 ms QT Int : 380 ms P-R-T Axes : 70 30 34 degrees QTcB Int : 421 ms Normal sinus rhythm Nonspecific T wave abnormality Abnormal ECG When compared with ECG of 15-Apr-2024 10:58, Nonspecific T wave abnormality now evident in Lateral leads Referred By: Generic ED Physician Electronically Signed By: Familia Alexandre
[2024-04-19 10:02] LABS: MANUAL DIFF FLAG NO
[2024-04-19 10:03] LABS: Basophils Percent Auto 0.3 % (0-2); Eosinophils Absolute Auto 0.1 X10*3/uL (0.0-0.4); Eosinophils Percent Auto 1.3 % (0-4); Hematocrit 39.7 % (42.0-52.0); Hemoglobin 13.7 g/dl (14.0-18.0); Imm Gran Abs Auto 0.02 X10*3/uL (0.00-0.03); Imm Gran Pct Auto 0.3 % (0.0-0.4); Lymphocytes Absolute Auto 1.9 X10*3/uL (1.2-4.9); Lymphocytes Percent Auto 23.3 % (20-40); Mean Corpuscular HGB Conc 34.5 g/dl (31.0-36.0); Mean Corpuscular Hemoglobin 31.3 pg (27.0-33.0); Mean Corpuscular Volume 90.6 fL (80.0-98.0); Mean Platelet Volume 8.9 fL (9.4-12.4); Monocytes Absolute Auto 0.8 X10*3/uL (0.1-1.2); Monocytes Percent Auto 10.6 % (2-11); Neutrophils Absolute Auto 5.1 x10*3/uL (2.0-8.3); Neutrophils Percent Auto 64.2 % (45-73); Platelet Count 294 X10*3/uL (160-400); Red Blood Count 4.38 X10*6/uL (4.60-5.80); Red Cell Distribution Width 12.8 % (11.0-16.0); White Blood Count 7.9 X10*3/uL (4.8-10.8)
[2024-04-19 10:23] LABS: Alanine Aminotransferase 15 U/L (0-40); Albumin Level 4.1 g/dL (3.5-5.0); Alkaline Phosphatase 103 U/L (39-117); Anion Gap 12 (12-20); Aspartate Amino Transferase 20 U/L (5-37); Bilirubin Total 0.5 mg/dL (0.0-1.0); Blood Urea Nitrogen 12 mg/dL (9-16); Calcium 9.3 mg/dL (8.4-10.2); Carbon Dioxide 25 mmol/L (22-29); Chloride 106 mmol/L (96-108); Creatinine Clr Calc Pharmacy 82.5; Estimated Glomerular Filt Rate > 60; Glucose Random 93 mg/dL (60-115); Sodium 139 mmol/L (135-145); Total Protein 7.6 g/dL (6.5-8.0)
[2024-04-19 10:32] LABS: Troponin-I High Sensitivity < 2.7 ng/L (<3.5-35.0)
--- NOTE | 2024-04-19 10:38 | ED_ITS ---
HPI - General Adult General Chief complaint: Fall Stated complaint: FACE/NECK PAIN S/P FALL ON MON,DIFF SWALLOWING Time Seen by Provider: 04/19/24 10:38 Source: patient, EMS, RN notes reviewed and old records reviewed Mode of arrival: EMS Limitations: no limitations History of Present Illness ED Provider: José Miguel WATERS narrative: Patient is a 64-year-old male with history of syncope, frequent falls, mood disorder, BPH presenting to the ED via EMS with complaint of difficulty swallowing, neck pain, and facial injuries after a fall yesterday. States he was seen in this ED on 04/15 after a syncopal episode and was admitted for further evaluation. Yesterday he was outside on his deck, felt palpitations and had syncopal episode. Fell onto face, has superficial laceration to upper lip, chin. Also complaining of left posterior shoulder and upper back pain. Denies headache, vision changes. Denies current chest pain, palpitations, dyspnea. MD complaint: syncope Onset (ago): day(s) Location: face, neck and back Related Data Home Medications ?Medication ?Instructions ?Recorded ?Confirmed allopurinol 300 mg tablet 1 tab PO DAILY 03/28/22 04/15/24 cholecalciferol (vitamin D3) 25 25 mcg PO DAILY 03/28/22 04/15/24 mcg (1,000 unit) tablet (Vitamin D3) multivitamin 1 tab PO DAILY 03/28/22 04/15/24 omeprazole 20 mg capsule,delayed 1 cap PO DAILY@0630 03/28/22 04/15/24 release tamsulosin 0.4 mg capsule 1 cap PO BEDTIME 03/28/22 04/15/24 calcium carbonate 500 mg PO DAILY 04/15/24 04/15/24 dextroamphetamine-amphetamine ER 1 cap PO DAILY 04/15/24 04/15/24 30 mg 24hr capsule,extend release quetiapine 300 mg tablet 600 mg PO BEDTIME PRN Mood/Sleep 04/15/24 04/15/24 Previous Rx's ?Medication ?Instructions ?Recorded carbamazepine 200 mg 200 mg PO BID #60 tabs 04/04/22 tablet,extended release,12 hr gabapentin 600 mg tablet 600 mg PO TID #90 tabs 04/04/22 Allergies Allergy/AdvReac Type Severity Reaction Status Date / Time bee pollen [bee stings] Allergy Intermediate Facial Verified 04/19/24 09:43 Swelling oxycodone [From OxyContin] Allergy Mild ITCHING/VOM Verified 04/19/24 09:43 ITING acetaminophen [Vicodin] Allergy Unknown Hives Verified 04/19/24 09:43 hydrocodone [HYDROCODONE] AdvReac Severe STOMACH Verified 04/19/24 09:43 CRAMPING Review of Systems 2 Review of Systems: As per HPI Yes all other systems are reviewed and are negative Constitutional: Constitutional: Reports as per HPI [facility] Past Medical History Medical History (Updated 04/19/24 @ 21:45 by Vince Fishman MD) Unspecified mood [affective] disorder Social History Social History Household Members: Family Household Members Other:: , 2 boys, mother in law, 3 children (temporary custody). Housing: House Do you presently have visiting nurse or other home services: Yes ([employer]) Alcohol intake: current Alcohol intake frequency: holidays/special occasions only Patient Tobacco Use Status: Never used Tobacco e-Cigarette/Vaping Use: Currently Using Second Hand Smoke Exposure: No Substance Use Type: Marijuana Advance Directives: No Advance Directives Information Provided: Yes service: No Sexual orientation: Straight/Heterosexual Physical Exam ED Vital Signs: Vital Signs - 24 hr 04/19/24 09:41 04/19/24 10:24 04/19/24 12:34 Temperature 97.8 F 98.4 F 98.3 F Pulse Rate 71 72 72 Respiratory Rate 20 16 16 Blood Pressure 159/78 H 131/63 128/67 Pulse Oximetry 99 99 100 Oxygen Delivery Method Room Air Room Air Room Air 04/19/24 15:28 04/19/24 18:39 04/19/24 21:13 Temperature 97.9 F 98.3 F 99.3 F Pulse Rate 78 72 76 Respiratory Rate 16 16 18 Blood Pressure 114/58 L 124/62 137/71 Pulse Oximetry 99 99 95 Oxygen Delivery Method Room Air Room Air Room Air BMI result Body Mass Index 20.9 Vital signs have been reviewed and appear to be correct. Blood pressure normal. Heart rate normal. Respiratory rate normal. Temperature normal. Oxygen saturation normal. Const General: cooperative, healthy appearing and no acute distress Orientation/consciousness: oriented to person, oriented to place, oriented to time and patient oriented x3 Limitations: no limitations [facility] Head: Yes normal to inspection, No No palpable skull fracture present, Yes normocephalic, No Oliva's sign and No periorbital ecchymosis Ears: hearing grossly normal bilaterally, external ears normal, TM's normal bilaterally and EAC's normal General nose exam: Normal external nose present Nose image: 2 1. swelling, superficial abrasion Face and sinus: Yes face symmetric Face images: 2 1. superficial abrasion Mouth: Normal oral and palatal mucosa present, lip normal, tongue normal, oropharynx normal, moist mucous membranes, no drooling, no muffled voice and no trismus Throat: Yes uvula midline Eyes Pupils: Equal, round and reactive pupils present EOM: EOMs intact bilaterally Neck Neck: Yes normal visual inspection and Yes supple Chest Chest palpation & inspection: normal inspection of the chest and normal palpation of entire chest wall Resp Effort & Inspection: normal respiratory effort and able to speak in complete sentences Auscultation: clear to auscultation bilaterally Cardio Rate: regular rate Rhythm: regular rhythm Heart sounds: S1 normal heart sound present and S2 normal heart sound present GI Palpation (GI): Soft to palpation and nontender Auscultation: normoactive bowel sounds General: Yes no CVA tenderness Back/Spine/Pelvis Back: no CVA tenderness Cervical Spine: cervical ROM normal, cervical muscular tenderness, Cervical spine tenderness and No step off deformity Thoracic/Lumbar Spine: thoracic and lumbar spine normal to inspection, thoraco- lumbar ROM normal, pain with thoraco-lumbar ROM, thoracic spinal tenderness at T8 and at T9 and No lumbar spinal tenderness Pelvis: no pain with anterior-posterior compression and no pain with lateral compression Skin General skin exam: elasticity normal and turgor normal Neuro General: oriented to person, oriented to place, oriented to time, patient oriented x3, tone normal, moves all extremities, Normal light touch and pain sensation, no focal motor deficits, CN's II-XI intact bilaterally and deep tendon reflexes 2+ bilaterally Cranial nerves: Yes Equal, round and reactive pupils present Cognition (Neuro): normal cognition Motor exam (neuro): 5/5 motor strength present throughout, Pronator motor function not present, Normal motor muscle tone present throughout and Motor abnormalities not present Extrem General: Yes full ROM, Yes no pedal edema and Yes no calf tenderness Left upper extremity: shoulder/upper arm Details: inspection abnormal, tenderness Location: of the scapula and normal ROM Psych Mental Status: mental status grossly normal Affect: normal affect Thought process: Normal thought process present Course Course Course Narrative: the patient is a 64-year-old male who fell yesterday landing on his face with what sounds like a hyperextension injury. He has neck pain and bilateral shoulder pain and a sense of some difficulty swallowing. He has no shortness of breath. He has no sense of numbness or weakness in his arms however. The patient states that he fell yesterday because he may have fainted. He was hospitalized recently at this hospital for possible fainting episodes of uncertain etiology. The patient initially had a CT scan of his head, face, and cervical spine. The significant finding in the studies was prevertebral swelling or retropharyngeal swelling at around C3 or C4. This seemed to correlate with the patient's sense of difficulty swallowing. This prompted an MRI to evaluate for a possible hyperextension cervical injury. initial MRI of the neck was done without the appropriate settings to evaluate for possible ligamentous injury. The patient was sent for a 2nd MRI which was done with the appropriate protocol. this shows some cord edema of the cervical spinal cord as well as the retropharyngeal or prevertebral swelling. the radiologist thinks this might represent some kind of non- hemorrhagic cord contusion in the setting of trauma but acknowledges that other differential diagnoses are possible such as transverse myelitis or demyelination disorders. given findings above I contacted the trauma team at [facility] and the patient has been accepted for transfer to the emergency room for evaluation there. Dr. Aguilar trauma or service was consulted. Neurologically intact in his arms without findings of obvious weakness or sensory deficits in the arms. He will be Medications Administered Discontinued Medications Generic Name Dose Route Start Last Admin Trade Name Freq PRN Reason Stop Dose Admin Hydromorphone HCl 0.5 mg 04/19/24 14:40 04/19/24 14:47 Hydromorphone Hcl 0.5 Mg/0.5 Ml Syringe IVPUSH 04/19/24 14:41 0.5 mg ONCE ONE Administration Protocol Hydromorphone HCl 0.5 mg 04/19/24 18:15 04/19/24 19:53 Hydromorphone Hcl 0.5 Mg/0.5 Ml Syringe IVPUSH 04/19/24 18:16 0.5 mg ONCE ONE Administration Protocol Medical Decision Making Medical Decision Making [facility] Narrative: Patient is a 64-year-old male with history of syncope, frequent falls, mood disorder, BPH presenting to the ED via EMS with complaint of difficulty swallowing, neck pain, and facial injuries after a fall yesterday. On exam patient is awake, A+Ox3, VS WNL, afebrile, normal neurological exam without focal deficits, physical exam findings as above. Given reported symptoms and physical exam findings, initial differential includes but is not limited to facial bone fracture, ICH, skull or cervical vertebral fracture or subluxation, left shoulder fracture, thoracic vertebral fracture. Labs notable for no leukocytosis, slight anemia, no significant electrolyte abnormalities, negative troponin, negative ethanol. CT head notable for no acute fracture, no ICH. CT facial bones notable for no acute fractures. CT C-spine notable for multilevel spondylosis without acute fracture or trauma related listhesis, central spinal canal stenosis as well as edema pattern in the retropharynx at C3-4. No acute fracture on left shoulder x-ray. No acute fracture of thoracic spine My interpretation is in agreement with the radiologist's interpretation. Case discussed with my attending MD, Dr. Fishman, who reached out to the radiologist to discuss the edema seen on CT cspine. Dr. Fishman ordered MRI face/neck/orbits. Patient has patent airway, is managing his secretions without difficulty. MRI face/neck/orbits notes retropharyngeal edema without evidence for acute adenotonsillitis, epiglottitis or other acute inflammatory process. Impression discussed with radiologist by , given that concern is for traumatic injury. Radiologist, Dr. Mansfield, notes that the more appropriate MRI for evaluation of this would be cervical MRI. Cervical MR ordered. Patient signed out to REYNA Sam pending results of cervical MRI. Patient remains without airway compromise, managing secretions. Differential Diagnosis Differential Diagnoses: The differential diagnosis associated with the presentation includes As per [facility] Admission/Observation Consideration of admission/observation: Escalation of care including admission/observation considered Lab Data [facility] Lab Attestation statement: I reviewed the patient's lab results. As per [facility] 04/19/24 09:57 04/19/24 09:57 Labs: Lab Results 04/19/24 04/19/24 Range/Units 09:57 11:19 WBC 7.9 (4.8-10.8) X10*3/uL RBC 4.38 L (4.60-5.80) X10*6/uL Hgb 13.7 L (14.0-18.0) g/dl Hct 39.7 L (42.0-52.0) % MCV 90.6 (80.0-98.0) fL MCH 31.3 (27.0-33.0) pg MCHC 34.5 (31.0-36.0) g/dl RDW 12.8 (11.0-16.0) % Plt Count 294 (160-400) X10*3/uL MPV 8.9 L (9.4-12.4) fL Immature Gran % (Auto) 0.3 (0.0-0.4) % Neut % (Auto) 64.2 (45-73) % Lymph % (Auto) 23.3 (20-40) % Jessamine % (Auto) 10.6 (2-11) % Eos % (Auto) 1.3 (0-4) % Baso % (Auto) 0.3 (0-2) % Lymph # (Auto) 1.9 (1.2-4.9) X10*3/uL Jessamine # (Auto) 0.8 (0.1-1.2) X10*3/uL Eos # (Auto) 0.1 (0.0-0.4) X10*3/uL Baso # (Auto) 0.0 (0.0-0.2) X10*3/uL Abs Immat Gran (auto) 0.02 (0.00-0.03) X10*3/uL Absolute Neuts (auto) 5.1 (2.0-8.3) x10*3/uL Absolute Nucleated RBC 0.000 (0.0-0.012) X10*3/uL Nucleated RBC % (auto) 0.0 (0.0-0.2) /100WBC PT 11.1 (10.9-12.4) SEC INR 1.0 (0.9-1.1) Sodium 139 (135-145) mmol/L Potassium 4.0 (3.3-5.1) mmol/L Chloride 106 (96-108) mmol/L Carbon Dioxide 25 (22-29) mmol/L Anion Gap 12 (12-20) BUN 12 (9-16) mg/dL Creatinine 0.81 (0.5-1.4) mg/dL Estim Creat Clear Calc 82.5 Estimated GFR > 60 Random Glucose 93 (60-115) mg/dL Calcium 9.3 (8.4-10.2) mg/dL Magnesium 2.0 (1.6-2.6) mg/dL Total Bilirubin 0.5 (0.0-1.0) mg/dL AST 20 (5-37) U/L ALT 15 (0-40) U/L Alkaline Phosphatase 103 (39-117) U/L Troponin I High Sens < 2.7 (<3.5-35.0) ng/L Total Protein 7.6 (6.5-8.0) g/dL Albumin 4.1 (3.5-5.0) g/dL Ethyl Alcohol < 10 mg/dL Independent Interpretation I performed an independent interpretation of an: EKG (normal sinus rhythm, rate 74bpm, normal ID interval and QTc), Plain X-Ray and CT Scan Interpretation: CT head notable for no acute fracture, no ICH. CT facial bones notable for no acute fractures. CT C-spine notable for multilevel spondylosis without acute fracture or trauma related listhesis, central spinal canal stenosis as well as edema pattern in the retropharynx at C3-4. No acute fracture on left shoulder x-ray. No acute fracture of thoracic spine Radiology Impression Discussion of test interpretation with radiology: I have reviewed the radiologist's reading. Radiologist Impression: CT/CT facial bones wo IV con IMPRESSION: Limited by patient's motion artifact demonstrated no acute maxillofacial bone fracture or gross intraorbital hematoma. CT/CT head/brain wo IV con IMPRESSION: No acute fracture, bony calvarium. No acute intracranial hemorrhage. Stable brain CT/CT cervical spine wo IV con IMPRESSION: Multilevel cervical spondylosis suggesting DISH, without acute fracture or trauma-related listhesis. 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 Edema pattern in the retropharynx at C3-4. XR/XR shoulder LT min 2V IMPRESSION: 1. No acute findings of the left shoulder. No scapular fracture identified. 2. 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 3. Postoperative changes to the AC joint. XR/XR thoracic spine 3V IMPRESSION: 1. No acute finding of the thoracic spine. Impression: 1. Retropharyngeal edema with no evidence for acute adenotonsillitis, epiglottitis or other acute inflammatory process. 2. No lymphadenopathy. No definite jugular vein thrombosis. 3. Limited evaluation for a discrete abscess without intravenous contrast. 4. Consider follow-up CT neck with IV contrast. External Record Review External record reviewed: Inpatient record, Office record and Outpatient record Critical Care Time Critical Care Time Critical Care Time: Yes Total Critical Care Time: 35 Attestation: The patient was critically ill with a high probability of imminent or life- threatening deterioration. I spent greater than 30 minutes of discontinuous time evaluating the patient, delivering critical care at the bedside, discussing evaluating data with consultants. Critical care time does not include time spent performing separately billable procedures or teaching. Time spent performing critical care with 35 minutes. Discharge Plan Discharge Clinical Impression: Fall, Abrasion of face, Left shoulder strain, Cervical spinal cord injury Patient Disposition: [facility] Transfer Details: [facility], transfer to ER for trauma evaluation Prescriptions: No Action multivitamin Tablet 1 tab PO DAILY tamsulosin 0.4 mg capsule 1 cap PO BEDTIME omeprazole 20 mg capsule,delayed release(DR/EC) 1 cap PO DAILY@0630 allopurinol 300 mg tablet 1 tab PO DAILY cholecalciferol (vitamin D3) [Vitamin D3] 25 mcg (1,000 unit) Tablet 25 mcg PO DAILY gabapentin 600 mg Tablet 600 mg PO TID Qty: 90 0RF carbamazepine 200 mg Tablet Extended Release 12 Hr 200 mg PO BID Qty: 60 0RF calcium carbonate 500 mg calcium (1,250 mg) Tablet 500 mg PO DAILY dextroamphetamine-amphetamine 30 mg capsule,extended release 24hr 1 cap PO DAILY quetiapine 300 mg tablet 600 mg PO BEDTIME PRN (Reason: Mood/Sleep) Print Language: Upper Sorbian
--- OUTSIDE RECORDS SUMMARY | 2024-04-19 11:04 | XMS_ITS | Clinical Summary ---
Author Organization [facility] Address [address] [place] [id number] Care Team Providers Care Exploitation Analyst Name Role Phone Jun Cullen MD Primary [...] topic Insurance MANAGED MEDICARE GENERIC REYNA CASTELLANOS [id number] Care Teams Exploitation Analyst Relationship Specialty Start Date End Date Jun Cullen MD [phone] [place] [id number] PCP - General Family Medicine 11/01/23
--- OUTSIDE RECORDS SUMMARY | 2024-04-19 11:04 | XMS_ITS | Continuity of Care Document ---
Author Organization [facility] Address [address] [place] [phone]- Care Team Providers Care Safety Attendant Name Role Phone Subhash DE LA FUENTE, Jun Marcano Primary Care Physician [id number] Date[facility]s): [facility]/27/23 - [facility] [address] [place] [phone]- Attending Physician: Myra Butterfield MD Admitting Physician: Myra Butterfield MD Encounter Type: Pre-OutPatient One Time Allergies, Adverse Reactions, Alerts Substance Criticality Severity Reaction Reaction Severity Status Vicodin upset stomach Active OxyCONTIN Vomiting Active Immunizations Given and Recorded Vaccine Date Status Refusal Reason influenza virus vaccine, inactivated 12/27/22 Give n influenza virus vaccine, inactivated 03/29/22 Melvin rded influenza virus vaccine, inactivated 12/15/20 Give n influenza virus vaccine, inactivated 12/05/18 Give n influenza virus vaccine, inactivated 1 12/27/17 Re corded influenza virus vaccine, inactivated 04/12/16 Give n influenza virus vaccine, inactivated 2 12/09/09 Gi fred SARS-CoV-2 (COVID-19) mRNA BNT-162b2 vac 09/30/20 Recorded SARS-CoV-2 (COVID-19) mRNA BNT-162b2 vac 09/09/20 Recorded Adacel (Tdap) (oldterm) 02/04/16 Given Tet/Diphth/Acel, Pertussis (oldterm) 3 10/29/12 Gi fred tetanus-diphtheria toxoids (Td) 4 12/24/08 Given 1Result Comment: [03/13/2018] urgent care 2Admin Note: per pt. dr. Esqueda's office 3Admin Note: boostrix vis 07-08-2012 4Admin Note: per pt. in dr. Esqueda's office Medications Adderall XR 30 mg oral capsule, extended release 1 capsule = 30 mg, By Mouth, Daily in AM, for 60 days, Dx: ADD, F90.9, # 60 capsule, 0 Refills, Hard Stop 05/15/24 6:23:00 AM EDT, 03/16/24 6:23:00 AM EST, CR Capsule, [facility], 175.26, cm, 12/06/23 16:22:00 EDT, Height, 63.5, kg, 12/16/22 11:29:00 EDT, Dry Weight Start Date: 03/16/24 Stop Date: 05/15/24 Status: Ordered Quantity: 60.0 Unit: capsule Repeat number: 1 Adderall XR 30 mg oral capsule, extended release 1 capsule = 30 mg, By Mouth, Daily in AM, Dx: ADD, F90.9, # 60 capsule, 0 Refills, Maintenance, 05/15/24 6:23:00 AM EDT, CR Capsule, [facility] #[id number], 1 capsule By Mouth Daily in AM,x60 days,Instr:Dx: ADD, F90.9, 175.26, cm, 12/06/23 16:22:00 EDT, Height, 63.5, kg, 12/16/22 11:29:00 EDT, Dry Weight Start Date: 05/15/24 Stop Date: 07/14/24 Status: Ordered Quantity: 60.0 Unit: capsule Repeat number: 1 Albuterol (Eqv-ProAir HFA) 90 mcg/inh inhalation aerosol See Instructions, INHALE 2 PUFFS BY MOUTH EVERY 6 HOURS NEEDED FOR WHEEZING FOR SHORTNESS OF BREATH, # 9 Gm, 5 Refills, Maintenance, 08/08/23 2:31:00 PM EDT, [facility], 25, INHALE 2 PUFFS BY MOUTH EVERY 6 HOURS NEEDED FOR WHEEZING FOR SHORTNESS OF BREATH, 175.26, cm, 01/20/23 12:37:00 EST, Height, 63.5, kg, 12/16/22 11:29:00 EDT, Dry Weight Start Date: 08/08/23 Status: Ordered Quantity: 9.0 Unit: g Repeat number: 6 Albuterol (Eqv-ProAir HFA) 90 mcg/inh inhalation aerosol See Instructions, INHALE 2 PUFFS BY MOUTH EVERY 6 HOURS NEEDED FOR WHEEZING FOR SHORTNESS OF BREATH, # 9 Gm, 0 Refills, Maintenance, 02/17/23 4:07:00 PM EST, [facility], 25, INHALE 2 PUFFS BY MOUTH EVERY 6 HOURS NEEDED FOR WHEEZING FOR SHORTNESS OF BREATH, 175.26, cm, 01/20/23 12:37:00 EST, Height, 63.5, kg, 12/16/22 11:29:00 EDT, Dry Weight Start Date: 02/17/23 Status: Ordered Quantity: 9.0 Unit: g Repeat number: 1 allopurinol 300 mg oral tablet 1, tablet, By Mouth, Daily, # 90 tablet, Refills 3, Maintenance, 12/11/23 12:40:00 PM EDT, Route toPharmacy Electronically, [facility], 175.26, cm, 12/06/23 16:22:00 EDT, Height, 63.5, kg, 12/16/22 11:29:00 EDT, Dry Weight Start Date: 12/11/23 Status: Ordered Quantity: 90.0 Unit: tablet Repeat number: 1 carbamazepine 200 mg oral capsule, extended release 1 capsule, By Mouth, 2 times a day, # 60 capsule, 5 Refills, Maintenance, 08/22/23 9:47:00 AM EDT, [facility], 175.26, cm, 01/20/23 12:37:00 EST, Height, 63.5, kg, 12/16/22 11:29:00 EDT, DryWeight Start Date: 08/22/23 Status: Ordered Quantity: 60.0 Unit: capsule Repeat number: 1 cetirizine 10 mg oral tablet See Instructions, Take 1 tablet by mouth once daily, # 30 tablet, 0 Refills, Maintenance, 02/17/23 4:08:00 PM EST, [facility], 175.26, cm, 01/20/23 12:37:00 EST, Height, 63.5, kg, 12/16/2310:29:00 EDT, Dry Weight Start Date: 02/17/23 Status: Ordered Quantity: 30.0 Unit: tablet Repeat number: 1 clobetasol 0.05% topical cream 1 application, Topically, 2 times a day, # 60 Gm, 5 Refills, Acute 08/08/24 6:02:00 AM EDT, 08/09/23 6:02:00 AM EDT, Cream, [facility], Partial fill upon patient request if the prescription is for a schedule II opioid drug., 1 application Topically 2 times a day, 175.26, cm, 01/20/23 12:37:00 EST, Height, 63.5, kg, 12/16/22 11:29:00 EDT, Dry Weight Start Date: 08/09/23 Stop Date: 08/08/24 Status: Ordered Quantity: 60.0 Unit: g Repeat number: 6 EpiPen 2-John 0.3 mg injectable kit = 0.3 mg, Intramuscular, Once, PRN Anaphylactic Reaction, # 1 each, 0 Refills, Soft Stop, 08/26/21 5:36:00 AM EDT, [facility], Partial fill upon patient request if the prescription is for a schedule II opioid drug., 174, cm, 04/14/21 10:37:00 EST, Height, 68.8, kg, 03/15/21 22:48:00 EST, Dry Weight Start Date: 08/26/21 Status: Ordered Quantity: 1.0 Unit: each Repeat number: 1 gabapentin 600 mg oral tablet 1 tablet, By Mouth, 3 times a day, # 270 tablet, 3 Refills, Maintenance, 10/09/23 7:37:00 PM EDT, [facility], 175.26, cm, 01/20/23 12:37:00 EST, Height, 63.5, kg, 12/16/22 11:29:00 EDT, DryWeight Start Date: 10/09/23 Status: Ordered Quantity: 270.0 Unit: tablet Repeat number: 1 loratadine 10 mg oral tablet 10 mg, 1, tablet, By Mouth, Daily, Do not take with cetirizine, # 90 tablet, Refills 3, Tot. Refills 3, Maintenance, 08/09/23 6:04:00 AM EDT, Route to Pharmacy Electronically, [facility], Partial fill upon patient request if the prescription is for a schedule II opioid drug., 175.26, cm, 1 03/23/22 12:37:00 EST, Height, 63.5, kg, 12/16/22 11:29:00 EDT, Dry Weight Start Date: 08/09/23 Status: Ordered Quantity: 90.0 Unit: tablet Repeat number: 4 Multivitamin Daily, 0 Refills, Maintenance, 08/31/21 11:24:00 AM EDT, Partial fill upon patient request if the prescription is for a schedule II opioid drug. Start Date: 08/31/21 Status: Ordered Repeat number: 1 omeprazole 20 mg oral enteric coated capsule 1 capsule, By Mouth, Daily, # 90 capsule, 3 Refills, Maintenance, 05/28/22 9:06:00 PM EDT, [facility], 174, cm, 05/27/22 12:54:00 EDT, Height, 68.8, kg, 03/15/21 22:48:00 EST, Dry Weight Start Date: 05/28/22 Status: Ordered Quantity: 90.0 Unit: capsule Repeat number: 4 QUEtiapine 300 mg oral tablet 1 tablet, By Mouth, Daily at bedtime, # 30 tablet, 5 Refills, Maintenance, 07/18/23 12:52:00 PM EDT,[facility], 175.26, cm, 01/20/23 12:37:00 EST, Height, 63.5, kg, 12/16/22 11:29:00 EDT, Dry Weight Start Date: 07/18/23 Status: Ordered Quantity: 30.0 Unit: tablet Repeat number: 1 ZyrTEC 10 mg oral tablet 1 tablet = 10 mg, By Mouth, Daily, # 30 tablet, 5 Refills, Maintenance, 11/05/22 7:50:00 AM EDT, Tablet, [facility], Partial fill upon patient request if the prescription is for a schedule II opioid drug., 174, cm, 10/31/22 15:46:00 EDT, Height, 68.8, kg, 03/15/21 22:48:00 EST, Dry Weight Start Date: 11/05/22 Status: Ordered Quantity: 30.0 Unit: tablet Repeat number: 6 Indication: Chronic cough Problem List Condition Confirmation Course Effective Dates Status H ealth Status Informant Anemia Confirmed Active Arthralgia of the lower leg Confirmed Active Bipolar disease, chronic Confirmed Active Cellulitis and abscess of foot excluding toe Confirmed Active Cervical lymphadenopathy Confirmed Active Constipation Confirmed Active Diarrhea Confirmed Active Gout Confirmed Active Internal hemorrhoids Confirmed Active LBP (low back pain) Confirmed 12/29/11 Active 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 Lumbar radiculopathy Confirmed Active Piriformis syndrome of left side Confirmed Active Moderate somatic symptom disorder with predominant pain Confirmed Active Swelling of joint of right knee Confirmed Active Unintended weight loss Confirmed Active Social History Social History Type Response Smoking Status Never smoker entered on: 07/04/14 Sex Sex Representation Male (finding) Patient Care team information Care Team Personnel Name: Subhash DE LA FUENTE, Jun Marcano [facility] Phys[facility] - Primary Care Member Role: PCP Address: [address] [place] [id number] Telecom: Care Team Related Persons Name: VIANCA LARKIN Insurance Providers Guarantor name: CARLOS SAUCEDO Health Plan Information #: 1 Payer: [facility] CARE ALLIANCE/ONE CARE Member Number: [id number] Policy Number: NA Group Number: [facility] Health Plan Information #: 2 Payer: [facility]/ONE CARE Member Number: [id number] Policy Number: NA Group Number: [id number]
--- OUTSIDE RECORDS SUMMARY | 2024-04-19 11:04 | XMS_ITS | Continuity of Care Document ---
Author Organization [facility] F[facility]ix lt Address [address] [place] [address]- Care Team Providers Care Sane Nurse Name Role Phone Subhash DE LA FUENTE, Jun Marcano Primary Care Physician Encounter [facility] Date(s): 03/04/24 - 04/03/24 [facility] Adult [address] [place] [address]- Encounter Type: Triage Allergies, Adverse Reactions, Alerts Substance Criticality Severity [...] EDT, 03/16/24 6:23:00 AM EST, CR Capsule, [facility], 175.26, cm, 12/06/23 16:22:00 EDT, Height, 63.5, kg, 12/16/22 11:29:00 EDT, Dry Weight Start Date: 03/16/24 Stop Date: 05/15/24 Status: Ordered Quantity: 60.0 Unit: capsule Repeat number: 1 Adderall XR 30 mg oral capsule, extended release 1 capsule = 30 mg, By Mouth, Daily in AM, Dx: ADD, F90.9, # 60 capsule, 0 Refills, Maintenance, 05/15/24 6:23:00 AM EDT, CR Capsule, [facility] #[id number], 1 capsule By Mouth Daily in AM,x60 [...] 5 Refills, Maintenance, 08/08/23 2:31:00 PM EDT, [facility], 25, INHALE 2 PUFFS BY MOUTH EVERY [...] 0 Refills, Maintenance, 02/17/23 4:07:00 PM EST, [facility], 25, INHALE 2 PUFFS BY [...] 12/11/23 12:40:00 PM EDT, Route toPharmacy Electronically, [facility], 175.26, cm, 12/06/23 16:22:00 EDT, Height, 63.5, kg, 12/16/22 11:29:00 EDT, Dry Weight Start Date: 12/11/23 Status: Ordered Quantity: 90.0 Unit: tablet Repeat number: 1 carbamazepine 200 mg oral capsule, extended release 1 capsule, By Mouth, 2 times a day, # 60 capsule, 5 Refills, Maintenance, 08/22/23 9:47:00 AM EDT, [facility], 175.26, cm, 01/20/23 12:37:00 EST, Height, 63.5, kg, 12/16/22 11:29:00 EDT, DryWeight Start Date: 08/22/23 Status: Ordered Quantity: 60.0 Unit: capsule Repeat number: 1 cetirizine 10 mg oral tablet See Instructions, Take 1 tablet by mouth once daily, # 30 tablet, 0 Refills, Maintenance, 02/17/23 4:08:00 PM EST, [facility], 175.26, cm, 01/20/23 12:37:00 EST, Height, 63.5, kg, 12/16/2310:29:00 EDT, Dry Weight Start Date: 02/17/23 Status: Ordered Quantity: 30.0 Unit: tablet Repeat number: 1 clobetasol 0.05% topical cream 1 application, Topically, 2 times a day, # 60 Gm, 5 Refills, Acute 08/08/24 6:02:00 AM EDT, 08/09/23 6:02:00 AM EDT, Cream, [facility], Partial fill upon patient request [...] Refills, Soft Stop, 08/26/21 5:36:00 AM EDT, [facility], Partial fill upon patient request if the prescription is for a schedule II opioid drug., 174, cm, 04/14/21 10:37:00 EST, Height, 68.8, kg, 03/15/21 22:48:00 EST, Dry Weight Start Date: 08/26/21 Status: Ordered Quantity: 1.0 Unit: each Repeat number: 1 gabapentin 600 mg oral tablet 1 tablet, By Mouth, 3 times a day, # 270 tablet, 3 Refills, Maintenance, 10/09/23 7:37:00 PM EDT, [facility], 175.26, cm, 01/20/23 12:37:00 EST, Height, 63.5, kg, 12/16/22 11:29:00 EDT, DryWeight Start Date: 10/09/23 Status: Ordered Quantity: 270.0 Unit: tablet Repeat number: 1 loratadine 10 mg oral tablet 10 mg, 1, tablet, By Mouth, Daily, Do not take with cetirizine, # 90 tablet, Refills 3, Tot. Refills 3, Maintenance, 08/09/23 6:04:00 AM EDT, Route to Pharmacy Electronically, [facility], Partial fill upon patient request if the [...] 3 Refills, Maintenance, 05/28/22 9:06:00 PM EDT, [facility], 174, cm, 05/27/22 12:54:00 EDT, Height, 68.8, kg, 03/15/21 22:48:00 EST, Dry Weight Start Date: 05/28/22 Status: Ordered Quantity: 90.0 Unit: capsule Repeat number: 4 QUEtiapine 300 mg oral tablet 1 tablet, By Mouth, Daily at bedtime, # 30 tablet, 5 Refills, Maintenance, 07/18/23 12:52:00 PM EDT,[facility], 175.26, cm, 01/20/23 12:37:00 EST, Height, 63.5, kg, 12/16/22 11:29:00 EDT, Dry Weight Start Date: 07/18/23 Status: Ordered Quantity: 30.0 Unit: tablet Repeat number: 1 ZyrTEC 10 mg oral tablet 1 tablet = 10 mg, By Mouth, Daily, # 30 tablet, 5 Refills, Maintenance, 11/05/22 7:50:00 AM EDT, Tablet, [facility], Partial fill upon patient request [...] Subhash DE LA FUENTE, Jun Marcano Position: [facility] Physician - Primary Care Member Role: PCP Address: [address] [place] [address]- Telecom: Care Team Related Persons Name: VIANCA LARKIN Insurance Providers Guarantor name: CARLOS SAUCEDO Health Plan Information #: 1 Payer: [facility] C[facility] ALLIANCE/[facility] CARE Member Number: NA Policy Number: NA Group Number: NA
--- OUTSIDE RECORDS SUMMARY | 2024-04-19 11:04 | XMS_ITS | Continuity of Care Document ---
Author Organization [facility] Félix lt Address [address] [place] [phone]- Care Team Providers Care Nursing Technician Name Role Phone Subhash DE LA FUENTE, Jun Marcano Primary Care Physician Encounter [facility] Date(s): 02/28/24 - 03/29/24 [facility] Adult [address] [place] [address]- Encounter Type: Triage Allergies, Adverse Reactions, Alerts [...] EDT, 03/16/24 6:23:00 AM EST, CR Capsule, [facility], 175.26, cm, 12/06/23 [...] Maintenance, 05/15/24 6:23:00 AM EDT, CR Capsule, [facility] #[id number], 1 capsule By Mouth Daily in AM,x60 [...] 5 Refills, Maintenance, 08/08/23 2:31:00 PM EDT, [facility], 25, INHALE 2 PUFFS BY MOUTH EVERY [...] 0 Refills, Maintenance, 02/17/23 4:07:00 PM EST, [facility], 25, INHALE 2 [...] 12/11/23 12:40:00 PM EDT, Route toPharmacy Electronically, [facility], 175.26, cm, 12/06/23 16:22:00 EDT, Height, 63.5, kg, 12/16/22 11:29:00 EDT, Dry Weight Start Date: 12/11/23 Status: Ordered Quantity: 90.0 Unit: tablet Repeat number: 1 carbamazepine 200 mg oral capsule, extended release 1 capsule, By Mouth, 2 times a day, # 60 capsule, 5 Refills, Maintenance, 08/22/23 9:47:00 AM EDT, [facility], 175.26, cm, 01/20/23 12:37:00 EST, Height, 63.5, kg, 12/16/22 11:29:00 EDT, DryWeight Start Date: 08/22/23 Status: Ordered Quantity: 60.0 Unit: capsule Repeat number: 1 cetirizine 10 mg oral tablet See Instructions, Take 1 tablet by mouth once daily, # 30 tablet, 0 Refills, Maintenance, 02/17/23 4:08:00 PM EST, [facility], 175.26, cm, 01/20/23 12:37:00 EST, Height, 63.5, kg, 12/16/2310:29:00 EDT, Dry Weight Start Date: 02/17/23 Status: Ordered Quantity: 30.0 Unit: tablet Repeat number: 1 clobetasol 0.05% topical cream 1 application, Topically, 2 times a day, # 60 Gm, 5 Refills, Acute 08/08/24 6:02:00 AM EDT, 08/09/23 6:02:00 AM EDT, Cream, [facility], Partial fill upon [...] Refills, Soft Stop, 08/26/21 5:36:00 AM EDT, [facility], Partial fill upon patient request if the prescription is for a schedule II opioid drug., 174, cm, 04/14/21 10:37:00 EST, Height, 68.8, kg, 03/15/21 22:48:00 EST, Dry Weight Start Date: 08/26/21 Status: Ordered Quantity: 1.0 Unit: each Repeat number: 1 gabapentin 600 mg oral tablet 1 tablet, By Mouth, 3 times a day, # 270 tablet, 3 Refills, Maintenance, 10/09/23 7:37:00 PM EDT, [facility], 175.26, cm, 01/20/23 12:37:00 EST, Height, 63.5, kg, 12/16/22 11:29:00 EDT, DryWeight Start Date: 10/09/23 Status: Ordered Quantity: 270.0 Unit: tablet Repeat number: 1 loratadine 10 mg oral tablet 10 mg, 1, tablet, By Mouth, Daily, Do not take with cetirizine, # 90 tablet, Refills 3, Tot. Refills 3, Maintenance, 08/09/23 6:04:00 AM EDT, Route to Pharmacy Electronically, [facility], Partial fill upon patient request if the [...] 3 Refills, Maintenance, 05/28/22 9:06:00 PM EDT, [facility], 174, cm, 05/27/22 12:54:00 EDT, Height, 68.8, kg, 03/15/21 22:48:00 EST, Dry Weight Start Date: 05/28/22 Status: Ordered Quantity: 90.0 Unit: capsule Repeat number: 4 QUEtiapine 300 mg oral tablet 1 tablet, By Mouth, Daily at bedtime, # 30 tablet, 5 Refills, Maintenance, 07/18/23 12:52:00 PM EDT,[facility], 175.26, cm, 01/20/23 12:37:00 EST, Height, 63.5, kg, 12/16/22 11:29:00 EDT, Dry Weight Start Date: 07/18/23 Status: Ordered Quantity: 30.0 Unit: tablet Repeat number: 1 ZyrTEC 10 mg oral tablet 1 tablet = 10 mg, By Mouth, Daily, # 30 tablet, 5 Refills, Maintenance, 11/05/22 7:50:00 AM EDT, Tablet, [facility], Partial fill upon [...] Subhash DE LA FUENTE, Jun Marcano Position: [facility] Physician - Primary Care Member Role: PCP Address: [address] [place] [address]- Telecom: Care Team Related Persons Name: VIANCA LARKIN Insurance Providers Guarantor name: CARLOS SAUCEDO Health Plan Information #: 1 Payer: [facility] C[facility] ALLIANCE/[facility] C[facility] Member Number: NA Policy Number: NA Group Number: NA
--- OUTSIDE RECORDS SUMMARY | 2024-04-19 11:04 | XMS_ITS | Continuity of Care Document ---
Author Organization [facility] Address [address] [place] [address]- Care Team Providers Care Research And Development Chemist Name Role Phone Subhash DE LA FUENTE, Jun Marcano Primary Care Physician [phone] Encounter [facility] Date(s): 02/22/24 - 03/23/24 [facility] [address] [place] [address]- Attending Physician: Gayle Lawrence Admitting Physician: Gayle Lawrence Referring Physician: Gayle Lawrence Encounter Type: Triage Allergies, Adverse Reactions, Alerts [...] EDT, 03/16/24 6:23:00 AM EST, CR Capsule, [facility], 175.26, cm, 12/06/23 [...] Maintenance, 05/15/24 6:23:00 AM EDT, CR Capsule, [facility] #[id number], 1 capsule By Mouth Daily in AM,x60 [...] 5 Refills, Maintenance, 08/08/23 2:31:00 PM EDT, [facility], 25, INHALE 2 [...] 0 Refills, Maintenance, 02/17/23 4:07:00 PM EST, [facility], 25, INHALE 2 [...] 12/11/23 12:40:00 PM EDT, Route toPharmacy Electronically, [facility], 175.26, cm, 12/06/23 16:22:00 EDT, Height, 63.5, kg, 12/16/22 11:29:00 EDT, Dry Weight Start Date: 12/11/23 Status: Ordered Quantity: 90.0 Unit: tablet Repeat number: 1 carbamazepine 200 mg oral capsule, extended release 1 capsule, By Mouth, 2 times a day, # 60 capsule, 5 Refills, Maintenance, 08/22/23 9:47:00 AM EDT, [facility], 175.26, cm, 01/20/23 12:37:00 EST, Height, 63.5, kg, 12/16/22 11:29:00 EDT, DryWeight Start Date: 08/22/23 Status: Ordered Quantity: 60.0 Unit: capsule Repeat number: 1 cetirizine 10 mg oral tablet See Instructions, Take 1 tablet by mouth once daily, # 30 tablet, 0 Refills, Maintenance, 02/17/23 4:08:00 PM EST, [facility], 175.26, cm, 01/20/23 12:37:00 EST, Height, 63.5, kg, 12/16/2310:29:00 EDT, Dry Weight Start Date: 02/17/23 Status: Ordered Quantity: 30.0 Unit: tablet Repeat number: 1 clobetasol 0.05% topical cream 1 application, Topically, 2 times a day, # 60 Gm, 5 Refills, Acute 08/08/24 6:02:00 AM EDT, 08/09/23 6:02:00 AM EDT, Cream, [facility], Partial fill upon [...] Refills, Soft Stop, 08/26/21 5:36:00 AM EDT, [facility], Partial fill upon patient request if [...] 3 Refills, Maintenance, 10/09/23 7:37:00 PM EDT, [facility], 175.26, cm, 01/20/23 12:37:00 EST, Height, 63.5, kg, 12/16/22 11:29:00 EDT, DryWeight Start Date: 10/09/23 Status: Ordered Quantity: 270.0 Unit: tablet Repeat number: 1 loratadine 10 mg oral tablet 10 mg, 1, tablet, By Mouth, Daily, Do not take with cetirizine, # 90 tablet, Refills 3, Tot. Refills 3, Maintenance, 08/09/23 6:04:00 AM EDT, Route to Pharmacy Electronically, [facility], Partial fill upon [...] 3 Refills, Maintenance, 05/28/22 9:06:00 PM EDT, [facility], 174, cm, 05/27/22 12:54:00 EDT, Height, 68.8, kg, 03/15/21 22:48:00 EST, Dry Weight Start Date: 05/28/22 Status: Ordered Quantity: 90.0 Unit: capsule Repeat number: 4 QUEtiapine 300 mg oral tablet 1 tablet, By Mouth, Daily at bedtime, # 30 tablet, 5 Refills, Maintenance, 07/18/23 12:52:00 PM EDT,[facility], 175.26, cm, 01/20/23 12:37:00 EST, Height, 63.5, kg, 12/16/22 11:29:00 EDT, Dry Weight Start Date: 07/18/23 Status: Ordered Quantity: 30.0 Unit: tablet Repeat number: 1 ZyrTEC 10 mg oral tablet 1 tablet = 10 mg, By Mouth, Daily, # 30 tablet, 5 Refills, Maintenance, 11/05/22 7:50:00 AM EDT, Tablet, [facility], Partial fill upon [...] Subhash DE LA FUENTE, Jun Marcano Position: [facility] Physician - Primary Care Member Role: PCP Address: [address] [place] [id number] Telecom: Care Team Related Persons Name: VIANCA LARKIN Insurance Providers Guarantor name: CARLOS SAUCEDO [facility] Plan Information #: 1 Payer: [facility] ALLIANCE/ONE CARE Member Number: NA Policy Number: NA Group Number: NA
--- OUTSIDE RECORDS SUMMARY | 2024-04-19 11:04 | XMS_ITS | Clinical Summary ---
Author Organization [facility] Address [address] [place] [address] Care Team Providers Care Futures Trader Name Role Phone Pcp, No Primary Care [...] age to complete this topic Care Teams Futures Trader Relationship Specialty Start Date End Date Pcp, No PCP - General General Medicine 11/01/23
--- OUTSIDE RECORDS SUMMARY | 2024-04-19 11:04 | XMS_ITS | Continuity of Care Document ---
Author Organization [facility], [place] Félix lt Address [address] [place] [id number]- Care Team Providers Care Surgical Instrument Technician Name Role Phone Subhash DE LA FUENTE, Jun Marcano Primary Care Physician [place] [facility] [id number] Date(s): 02/28/24 - 03/29/24 [facility] [place] [address] [place] [id number]- Encounter Type: Triage Allergies, Adverse Reactions, Alerts [...] EDT, 03/16/24 6:23:00 AM EST, CR Capsule, [facility], 175.26, cm, 12/06/23 [...] Maintenance, 05/15/24 6:23:00 AM EDT, CR Capsule, [id number], 1 capsule By Mouth Daily in AM,x60 [...] 5 Refills, Maintenance, 08/08/23 2:31:00 PM EDT, [id number], 25, INHALE 2 PUFFS BY MOUTH EVERY [...] 0 Refills, Maintenance, 02/17/23 4:07:00 PM EST, [facility], 25, INHALE 2 [...] 12/11/23 12:40:00 PM EDT, Route toPharmacy Electronically, [facility], 175.26, cm, 12/06/23 16:22:00 EDT, Height, 63.5, kg, 12/16/22 11:29:00 EDT, Dry Weight Start Date: 12/11/23 Status: Ordered Quantity: 90.0 Unit: tablet Repeat number: 1 carbamazepine 200 mg oral capsule, extended release 1 capsule, By Mouth, 2 times a day, # 60 capsule, 5 Refills, Maintenance, 08/22/23 9:47:00 AM EDT, [facility], 175.26, cm, 01/20/23 12:37:00 EST, Height, 63.5, kg, 12/16/22 11:29:00 EDT, DryWeight Start Date: 08/22/23 Status: Ordered Quantity: 60.0 Unit: capsule Repeat number: 1 cetirizine 10 mg oral tablet See Instructions, Take 1 tablet by mouth once daily, # 30 tablet, 0 Refills, Maintenance, 02/17/23 4:08:00 PM EST, [facility], 175.26, cm, 01/20/23 12:37:00 EST, Height, 63.5, kg, 12/16/2310:29:00 EDT, Dry Weight Start Date: 02/17/23 Status: Ordered Quantity: 30.0 Unit: tablet Repeat number: 1 clobetasol 0.05% topical cream 1 application, Topically, 2 times a day, # 60 Gm, 5 Refills, Acute 08/08/24 6:02:00 AM EDT, 08/09/23 6:02:00 AM EDT, Cream, [facility], Partial fill upon [...] Refills, Soft Stop, 08/26/21 5:36:00 AM EDT, [facility], [...] 3 Refills, Maintenance, 10/09/23 7:37:00 PM EDT, [facility], 175.26, cm, 01/20/23 12:37:00 EST, Height, 63.5, kg, 12/16/22 11:29:00 EDT, DryWeight Start Date: 10/09/23 Status: Ordered Quantity: 270.0 Unit: tablet Repeat number: 1 loratadine 10 mg oral tablet 10 mg, 1, tablet, By Mouth, Daily, Do not take with cetirizine, # 90 tablet, Refills 3, Tot. Refills 3, Maintenance, 08/09/23 6:04:00 AM EDT, Route to Pharmacy Electronically, [facility], [...] 3 Refills, Maintenance, 05/28/22 9:06:00 PM EDT, [facility], 174, cm, 05/27/22 12:54:00 EDT, Height, 68.8, kg, 03/15/21 22:48:00 EST, Dry Weight Start Date: 05/28/22 Status: Ordered Quantity: 90.0 Unit: capsule Repeat number: 4 QUEtiapine 300 mg oral tablet 1 tablet, By Mouth, Daily at bedtime, # 30 tablet, 5 Refills, Maintenance, 07/18/23 12:52:00 PM EDT,[facility], 175.26, cm, 01/20/23 12:37:00 EST, Height, 63.5, kg, 12/16/22 11:29:00 EDT, Dry Weight Start Date: 07/18/23 Status: Ordered Quantity: 30.0 Unit: tablet Repeat number: 1 ZyrTEC 10 mg oral tablet 1 tablet = 10 mg, By Mouth, Daily, # 30 tablet, 5 Refills, Maintenance, 11/05/22 7:50:00 AM EDT, Tablet, [facility], Partial fill upon [...] Subhash DE LA FUENTE, Jun Marcano Position: [facility] Physician - Primary Care Member Role: PCP Address: [address] [place] [id number]- Telecom: Care Team Related Persons Name: VIANCA LARKIN Insurance Providers Guarantor name: CARLOS SAUCEDO Health Plan Information #: 1 Payer: [facility] [employer]/[facility] Member Number: NA Policy Number: NA Group Number: [id number]
--- NOTE | 2024-04-19 11:26 | MHC.EDTECH ---
EKG was taken and blood work completed, patient resting quietly in his bed within call kim in his reach.
[2024-04-19 11:33] LABS: Prothrombin Time 11.1 SEC (10.9-12.4)
[2024-04-19 11:37] LABS: Ethanol < 10 mg/dL
--- NOTE | 2024-04-19 11:54 | MHC.EDTECH ---
The EKG was taken earlier. PA will cancel the second order.
--- NOTE | 2024-04-19 14:40 | PC.NURSE ---
attempted to do patient mri form, patient started yelling at this nurse about pain and thorne medication and time spent in ED. patient educated that we need to figure out what is causing pain by mri, patient also educated that we would get him pain medication. patient then told nurse to get the fuck out of his room . attending md made aware.
[2024-04-19] MEDS: HYDROmorphone HCl 0.5 MG/0.5 ML SYRINGE IVPUSH ×2 (14:47→19:53)
--- NOTE | 2024-04-19 15:30 | PC.NURSE ---
Report taken from Viktoriya Sims RN
[2024-04-19] MEDS: HYDROmorphone HCl 1 MG/ML SYRINGE IVPUSH (21:59)
--- NOTE | 2024-04-19 23:23 | PC.NURSE ---
Nurse to nurse report give to Deandra at [facility] as pt is being transferred.
== END 2024-04-19 23:27 | disposition short-term general hospital (02) ==
PROVIDERS: Registered Nurse Emergency; Emergency Provider Emergency Medicine; PCP Family Medicine
DX: S00.81XA Abrasion of other part of head, initial encounter (principal); S46.912A Strain of unspecified muscle, fascia and tendon at shoulder and upper arm level, left arm, initial encounter; S14.103A Unspecified injury at C3 level of cervical spinal cord, initial encounter; R55 Syncope and collapse; M54.2 Cervicalgia; M25.512 Pain in left shoulder; M54.6 Pain in thoracic spine; R51.9 Headache, unspecified; R13.10 Dysphagia, unspecified; R94.31 Abnormal electrocardiogram [ECG] [EKG]; X58.XXXA Exposure to other specified factors, initial encounter; Y93.9 Activity, unspecified; Y92.9 Unspecified place or not applicable; Y99.8 Other external cause status; Z79.899 Other long term (current) drug therapy; Z51.81 Encounter for therapeutic drug level monitoring
CPT/HCPCS: 36415; 70450; 70486; 70540; 72072; 72125; 72141; 73030; 80053; 80307; 83735; 84484; 85025; 85610; 93005; 96374; 96376; 99285; J1171

== ENCOUNTER → 2024-04-19 09:43 | Outpatient (BNV) | payer OTHER, SELFPAY | PROVIDERS: Emergency Provider Emergency Medicine; PCP Family Medicine; Visit Provider Internal Medicine Cardiovascular Disease | DX: R94.31 Abnormal electrocardiogram [ECG] [EKG] (principal); W19.XXXA Unspecified fall, initial encounter | CPT/HCPCS: 93010 ==

== ENCOUNTER → 2024-04-19 10:39 | Outpatient (BNV) | payer OTHER, SELFPAY | PROVIDERS: Emergency Provider Emergency Medicine; PCP Family Medicine; Visit Provider Radiology Diagnostic Radiology | DX: S19.9XXA Unspecified injury of neck, initial encounter (principal); S09.90XA Unspecified injury of head, initial encounter; M54.6 Pain in thoracic spine; M25.512 Pain in left shoulder | CPT/HCPCS: 70450; 70486; 70540; 72072; 72125; 72141; 73030 ==